=== PATIENT | male | born 1960 | race Caucasian/White ===

== ENCOUNTER → 2017-01-21 | Outpatient (CLI) | payer OTHER ==
[2017-01-21 07:16] LABS: INTERNATIONAL NORM RATIO 1.4 (2.0-3.5); PROTHROMBIN TIME 14.9 SECONDS (9.0-12.4)
== END | disposition home or self-care (01) ==
LOC: LAB 06:13
PROVIDERS: Internal Medicine Cardiovascular Disease
DX: I25.10 Atherosclerotic heart disease of native coronary artery without angina pectoris (principal); I10 Essential (primary) hypertension; Z95.2 Presence of prosthetic heart valve

== ENCOUNTER → 2017-01-23 | Outpatient (CLI) | payer OTHER ==
[2017-01-23 09:20] LABS: INTERNATIONAL NORM RATIO 1.5 (2.0-3.5); PROTHROMBIN TIME 16.7 SECONDS (9.0-12.4)
== END | disposition home or self-care (01) ==
LOC: LAB 08:25
PROVIDERS: Internal Medicine Cardiovascular Disease
DX: I25.10 Atherosclerotic heart disease of native coronary artery without angina pectoris (principal); I10 Essential (primary) hypertension; Z95.2 Presence of prosthetic heart valve

== ENCOUNTER → 2017-01-27 | Outpatient (CLI) | payer OTHER ==
[2017-01-27 09:31] LABS: INTERNATIONAL NORM RATIO 4.5 (2.0-3.5); PROTHROMBIN TIME 52.5 SECONDS (9.0-12.4)
== END | disposition home or self-care (01) ==
LOC: LAB 07:54
PROVIDERS: Internal Medicine Cardiovascular Disease
DX: I25.10 Atherosclerotic heart disease of native coronary artery without angina pectoris (principal); I10 Essential (primary) hypertension; Z95.2 Presence of prosthetic heart valve

== ENCOUNTER → 2017-01-31 | Outpatient (CLI) | payer OTHER ==
[2017-01-31 08:34] LABS: PROTHROMBIN TIME 65.9 SECONDS (9.0-12.4)
[2017-01-31 09:02] LABS: INTERNATIONAL NORM RATIO 5.6 (2.0-3.5)
== END | disposition home or self-care (01) ==
LOC: LAB 06:18
PROVIDERS: Internal Medicine Cardiovascular Disease
DX: I25.10 Atherosclerotic heart disease of native coronary artery without angina pectoris (principal); I10 Essential (primary) hypertension; Z95.2 Presence of prosthetic heart valve

== ENCOUNTER → 2017-02-03 | Outpatient (CLI) | payer OTHER ==
[2017-02-03 08:13] LABS: INTERNATIONAL NORM RATIO 1.4 (2.0-3.5); PROTHROMBIN TIME 14.8 SECONDS (9.0-12.4)
== END | disposition home or self-care (01) ==
LOC: LAB 07:02
PROVIDERS: Internal Medicine Cardiovascular Disease
DX: I25.10 Atherosclerotic heart disease of native coronary artery without angina pectoris (principal); I10 Essential (primary) hypertension; Z95.2 Presence of prosthetic heart valve

== ENCOUNTER → 2017-02-10 | Outpatient (CLI) | payer OTHER ==
[2017-02-10 09:59] LABS: INTERNATIONAL NORM RATIO 2.2 (2.0-3.5); PROTHROMBIN TIME 24.1 SECONDS (9.0-12.4)
== END | disposition home or self-care (01) ==
LOC: LAB 09:12
PROVIDERS: Internal Medicine Cardiovascular Disease
DX: I25.10 Atherosclerotic heart disease of native coronary artery without angina pectoris (principal); I10 Essential (primary) hypertension; Z95.2 Presence of prosthetic heart valve

== ENCOUNTER → 2017-02-26 | Outpatient (CLI) | payer OTHER | END | disposition home or self-care (01) | LOC: LAB 08:31 | PROVIDERS: Internal Medicine Cardiovascular Disease | DX: I25.10 Atherosclerotic heart disease of native coronary artery without angina pectoris (principal); I10 Essential (primary) hypertension; Z95.2 Presence of prosthetic heart valve ==

== ENCOUNTER → 2017-03-12 | Outpatient (CLI) | payer OTHER ==
[2017-03-12 08:51] LABS: PROTHROMBIN TIME 22.6 SECONDS (9.0-12.4)
== END | disposition home or self-care (01) ==
LOC: LAB 07:44
PROVIDERS: Internal Medicine Cardiovascular Disease
DX: I25.10 Atherosclerotic heart disease of native coronary artery without angina pectoris (principal); I10 Essential (primary) hypertension; Z95.2 Presence of prosthetic heart valve

== ENCOUNTER → 2017-04-01 | Outpatient (CLI) | payer OTHER ==
[2017-04-01 16:23] LABS: INTERNATIONAL NORM RATIO 2.7 (2.0-3.5); PROTHROMBIN TIME 30.6 SECONDS (9.0-12.4)
== END | disposition home or self-care (01) ==
LOC: LAB 14:57
PROVIDERS: Internal Medicine Cardiovascular Disease
DX: I25.10 Atherosclerotic heart disease of native coronary artery without angina pectoris (principal)

== ENCOUNTER → 2017-05-15 | Outpatient (CLI) | payer OTHER ==
[2017-05-15 09:13] LABS: INTERNATIONAL NORM RATIO 2.2 (2.0-3.5); PROTHROMBIN TIME 24.8 SECONDS (9.0-12.4)
== END | disposition home or self-care (01) ==
LOC: LAB 07:46
PROVIDERS: Internal Medicine Cardiovascular Disease
DX: I25.10 Atherosclerotic heart disease of native coronary artery without angina pectoris (principal); I10 Essential (primary) hypertension; Z95.2 Presence of prosthetic heart valve

== ENCOUNTER → 2017-06-19 | Outpatient (CLI) | payer OTHER ==
[2017-06-19 10:44] LABS: INTERNATIONAL NORM RATIO 1.7 (2.0-3.5); PROTHROMBIN TIME 19.2 SECONDS (9.0-12.4)
== END | disposition home or self-care (01) ==
LOC: LAB 09:48
PROVIDERS: Internal Medicine Cardiovascular Disease
DX: I25.10 Atherosclerotic heart disease of native coronary artery without angina pectoris (principal); I10 Essential (primary) hypertension; Z95.2 Presence of prosthetic heart valve

== ENCOUNTER → 2017-06-26 | Outpatient (CLI) | payer OTHER ==
[2017-06-26 08:27] LABS: INTERNATIONAL NORM RATIO 2.5 (2.0-3.5)
== END | disposition home or self-care (01) ==
LOC: LAB 07:30
PROVIDERS: Internal Medicine Cardiovascular Disease
DX: I25.10 Atherosclerotic heart disease of native coronary artery without angina pectoris (principal); I10 Essential (primary) hypertension; Z95.2 Presence of prosthetic heart valve

== ENCOUNTER → 2017-07-03 | Outpatient (CLI) | payer OTHER ==
[2017-07-03 09:21] LABS: INTERNATIONAL NORM RATIO 3.7 (2.0-3.5)
== END | disposition home or self-care (01) ==
LOC: LAB 08:26
PROVIDERS: Internal Medicine Cardiovascular Disease
DX: I25.10 Atherosclerotic heart disease of native coronary artery without angina pectoris (principal); I10 Essential (primary) hypertension; Z95.2 Presence of prosthetic heart valve

== ENCOUNTER 2017-07-13 21:17 | Emergency (ER) | payer OTHER ==
[~2017-07-13] VITALS: Ht 177.8 cm; Wt 106.6 kg
[2017-07-13] MEDS ORDERED: WARFARIN SOD5 MG PO (21:43)
[2017-07-13] MEDS ORDERED: NEURONTIN300 MG PO (21:44)
[2017-07-13] MEDS ORDERED: LANTUS SOL100 UNIT/1 SQ (21:44)
[2017-07-13 22:09] LABS: BASO # 0.1 10*3/uL (0.0-0.1); BASO % 0.5 % (0.0-1.0); EOS # 0.1 10*3/uL (0.0-0.4); HEMATOCRIT 45.4 % (42.0-52.0); HEMOGLOBIN 16.3 g/dl (14.0-18.0); LYMPH # 2.7 10*3/uL (1.3-4.4); MEAN CELL VOLUME 87.3 fl (80.0-94.0); MEAN CORPUSCULAR HGB 31.3 pg (27.0-31.0); MEAN CORPUSCULAR HGB CONC 35.9 g/dl (33.0-37.0); MEAN PLATELET VOLUME 9.9 fl (9.6-12.3); MONO # 1.1 10*3/uL (0.1-1.0); MONO % 8.6 % (3.0-9.0); NEUT # 8.7 10*3/uL (2.3-7.9); NEUT % 68.6 % (47.0-73.0); PLATELET COUNT AUTOMATED 208 10*3/uL (130-400); WHITE BLOOD COUNT 12.7 10*3/uL (4.8-10.8)
[2017-07-13 22:46] LABS: ACT PARTIAL THROMBO TIME 73.2 SECONDS (20.8-31.5)
[2017-07-13 22:49] LABS: INTERNATIONAL NORM RATIO 9.1 (2.0-3.5)
[2017-07-14] MEDS ORDERED: AUGMENTIN 875875 MG PO (15:49)
== END 2017-07-14 00:21 | disposition home or self-care (01) ==
LOC: ED 21:17
PROVIDERS: Emergency Medicine Emergency Medical Services
DX: R04.0 Epistaxis (principal); D68.32 Hemorrhagic disorder due to extrinsic circulating anticoagulants; F17.200 Nicotine dependence, unspecified, uncomplicated; Z79.899 Other long term (current) drug therapy; Z79.01 Long term (current) use of anticoagulants; Z95.1 Presence of aortocoronary bypass graft

== ENCOUNTER 2017-07-14 13:38 | Emergency (ER) | payer OTHER ==
[~2017-07-14] VITALS: Ht 185 cm; Wt 106.6 kg
[~2017-07-14 13:38] MED LIST: LANTUS SOL100 UNIT/1 SQ; NEURONTIN300 MG PO; WARFARIN SOD5 MG PO
[2017-07-14 14:26] LABS: BASO # 0.1 10*3/uL (0.0-0.1); BASO % 0.7 % (0.0-1.0); EOS # 0.2 10*3/uL (0.0-0.4); EOS % 1.8 % (1.0-4.0); HEMATOCRIT 45.5 % (42.0-52.0); HEMOGLOBIN 16.1 g/dl (14.0-18.0); LYMPH # 1.8 10*3/uL (1.3-4.4); LYMPH % 20.6 % (27.0-41.0); MEAN CELL VOLUME 88.2 fl (80.0-94.0); MEAN CORPUSCULAR HGB 31.2 pg (27.0-31.0); MEAN CORPUSCULAR HGB CONC 35.4 g/dl (33.0-37.0); MEAN PLATELET VOLUME 10.1 fl (9.6-12.3); MONO # 0.7 10*3/uL (0.1-1.0); MONO % 8.2 % (3.0-9.0); NEUT # 6.1 10*3/uL (2.3-7.9); NEUT % 68.5 % (47.0-73.0); PLATELET COUNT AUTOMATED 189 10*3/uL (130-400); RED BLOOD COUNT 5.16 10*6/uL (4.50-5.90)
[2017-07-14 14:48] LABS: ALBUMIN 3.6 gm/dl (3.1-4.5); ALKALINE PHOSPHATASE 76 U/L (45-117); BUN 8 mg/dl (7-24); CHLORIDE 95 mmol/L (98-107); CREATININE 0.93 mg/dL (0.70-1.30); MAGNESIUM 2.1 mg/dL (1.5-2.1); POTASSIUM 3.6 mmol/L (3.5-5.1); SGOT/AST 30 IU/L (3-35); SGPT/ALT 26 U/L (12-78); SODIUM 128 mmol/L (136-145); TOTAL PROTEIN 8.4 gm/dL (6.4-8.2)
[2017-07-14 14:50] LABS: INTERNATIONAL NORM RATIO 5.5 (2.0-3.5)
[2017-07-14] MEDS ORDERED: AUGMENTIN 875875 MG PO (15:49)
== END 2017-07-14 17:01 | disposition home or self-care (01) ==
LOC: ED 13:38
PROVIDERS: Emergency Medicine
DX: R04.0 Epistaxis (principal); D68.32 Hemorrhagic disorder due to extrinsic circulating anticoagulants; Z79.01 Long term (current) use of anticoagulants; Z79.899 Other long term (current) drug therapy

== ENCOUNTER → 2017-07-17 | Outpatient (CLI) | payer OTHER ==
[~2017-07-17] MED LIST changes: +AUGMENTIN 875875 MG PO
== END | disposition home or self-care (01) ==
LOC: LAB 06:45
PROVIDERS: Internal Medicine Cardiovascular Disease
DX: Z95.2 Presence of prosthetic heart valve (principal)

== ENCOUNTER → 2017-07-22 | Outpatient (CLI) | payer OTHER ==
[2017-07-22 08:31] LABS: INTERNATIONAL NORM RATIO 1.1 (2.0-3.5)
== END | disposition home or self-care (01) ==
LOC: LAB 07:20
PROVIDERS: Internal Medicine Cardiovascular Disease
DX: I25.10 Atherosclerotic heart disease of native coronary artery without angina pectoris (principal); I10 Essential (primary) hypertension; Z95.2 Presence of prosthetic heart valve

== ENCOUNTER 2017-07-24 12:47 | Emergency (ER) | payer OTHER ==
[~2017-07-24] VITALS: Wt 106.6 kg
[2017-07-24 13:11] LABS: BASO # 0.1 10*3/uL (0.0-0.1); BASO % 0.7 % (0.0-1.0); EOS # 0.2 10*3/uL (0.0-0.4); EOS % 1.7 % (1.0-4.0); HEMATOCRIT 45.9 % (42.0-52.0); HEMOGLOBIN 15.9 g/dl (14.0-18.0); LYMPH # 1.6 10*3/uL (1.3-4.4); MEAN CELL VOLUME 90.9 fl (80.0-94.0); MEAN CORPUSCULAR HGB 31.5 pg (27.0-31.0); MEAN CORPUSCULAR HGB CONC 34.6 g/dl (33.0-37.0); MEAN PLATELET VOLUME 9.6 fl (9.6-12.3); MONO # 0.9 10*3/uL (0.1-1.0); MONO % 8.1 % (3.0-9.0); NEUT # 7.8 10*3/uL (2.3-7.9); NEUT % 74.1 % (47.0-73.0); PLATELET COUNT AUTOMATED 242 10*3/uL (130-400); RED BLOOD COUNT 5.05 10*6/uL (4.50-5.90); RED CELL DISTRI WIDTH 13.2 % (0-14.5); WHITE BLOOD COUNT 10.5 10*3/uL (4.8-10.8)
[2017-07-24 13:23] LABS: ACT PARTIAL THROMBO TIME 25.7 SECONDS (20.8-31.5); INTERNATIONAL NORM RATIO 1.2 (2.0-3.5)
[2017-07-24 13:29] LABS: ALBUMIN 3.2 gm/dl (3.1-4.5); ALKALINE PHOSPHATASE 80 U/L (45-117); BUN 7 mg/dl (7-24); CHLORIDE 101 mmol/L (98-107); CREATININE 0.67 mg/dL (0.70-1.30); MAGNESIUM 2.1 mg/dL (1.5-2.1); POTASSIUM 3.9 mmol/L (3.5-5.1); SGOT/AST 23 IU/L (3-35); SGPT/ALT 20 U/L (12-78); SODIUM 132 mmol/L (136-145); TOTAL PROTEIN 7.8 gm/dL (6.4-8.2)
[2017-07-24 13:34] LABS: TROPONIN I 0.287 ng/ml (<0.045)
== END 2017-07-24 22:24 | disposition short-term general hospital (02) ==
LOC: ED 12:47
PROVIDERS: Emergency Medicine
DX: I21.4 Non-ST elevation (NSTEMI) myocardial infarction (principal); F17.200 Nicotine dependence, unspecified, uncomplicated; Z79.01 Long term (current) use of anticoagulants; Z79.899 Other long term (current) drug therapy; Z95.1 Presence of aortocoronary bypass graft

== ENCOUNTER → 2017-07-31 | Outpatient (CLI) | payer OTHER ==
[2017-07-31 09:23] LABS: INTERNATIONAL NORM RATIO 2.5 (2.0-3.5)
== END | disposition home or self-care (01) ==
LOC: LAB 08:04
PROVIDERS: Hospitalist
DX: Z79.01 Long term (current) use of anticoagulants (principal)

== ENCOUNTER → 2017-08-01 | Outpatient (CLI) | payer OTHER ==
[2017-08-01 09:51] LABS: INTERNATIONAL NORM RATIO 2.6 (2.0-3.5)
== END | disposition home or self-care (01) ==
LOC: LAB 01:20
PROVIDERS: Hospitalist
DX: Z79.01 Long term (current) use of anticoagulants (principal)

== ENCOUNTER → 2017-08-04 | Outpatient (CLI) | payer OTHER ==
[2017-08-04 08:08] LABS: INTERNATIONAL NORM RATIO 3.2 (2.0-3.5)
== END | disposition home or self-care (01) ==
LOC: LAB 08-02 01:22
PROVIDERS: Hospitalist
DX: Z51.81 Encounter for therapeutic drug level monitoring (principal); Z79.01 Long term (current) use of anticoagulants

== ENCOUNTER → 2017-08-07 | Outpatient (CLI) | payer OTHER ==
[2017-08-07 08:35] LABS: INTERNATIONAL NORM RATIO 3.8 (2.0-3.5)
== END | disposition home or self-care (01) ==
LOC: LAB 07:31
PROVIDERS: Internal Medicine Cardiovascular Disease
DX: Z95.2 Presence of prosthetic heart valve (principal)

== ENCOUNTER → 2017-08-11 | Outpatient (CLI) | payer OTHER ==
[2017-08-11 09:00] LABS: INTERNATIONAL NORM RATIO 2.1 (2.0-3.5)
== END | disposition home or self-care (01) ==
LOC: LAB 07:17
PROVIDERS: Internal Medicine Cardiovascular Disease
DX: Z79.01 Long term (current) use of anticoagulants (principal); Z95.2 Presence of prosthetic heart valve

== ENCOUNTER → 2017-08-18 | Outpatient (CLI) | payer OTHER ==
[2017-08-18 08:52] LABS: INTERNATIONAL NORM RATIO 1.5 (2.0-3.5)
== END | disposition home or self-care (01) ==
LOC: LAB 07:56
PROVIDERS: Internal Medicine Cardiovascular Disease
DX: Z79.01 Long term (current) use of anticoagulants (principal); Z95.2 Presence of prosthetic heart valve

== ENCOUNTER → 2017-08-25 | Outpatient (CLI) | payer OTHER ==
[2017-08-25 08:38] LABS: INTERNATIONAL NORM RATIO 2.1 (2.0-3.5)
== END | disposition home or self-care (01) ==
LOC: LAB 07:22
PROVIDERS: Internal Medicine Cardiovascular Disease
DX: Z95.2 Presence of prosthetic heart valve (principal)

== ENCOUNTER → 2017-09-01 | Outpatient (CLI) | payer OTHER ==
[2017-09-01 09:24] LABS: INTERNATIONAL NORM RATIO 2.2 (2.0-3.5)
== END | disposition home or self-care (01) ==
LOC: LAB 07:54
PROVIDERS: Internal Medicine Cardiovascular Disease
DX: Z95.2 Presence of prosthetic heart valve (principal)

== ENCOUNTER 2017-09-12 21:22 | Inpatient (IN) | payer OTHER ==
[~2017-09-12] VITALS: Ht 185.4 cm; Wt 106.2 kg
--- NOTE | ~2017-09-12 | CON ---
[place], [place] REPORT OF CONSULTATION NAME: DEBORA STEPHENSON [facility] #: [id number] UNIT #: [id number] ROOM: 407 DOCTOR: DREA REYNOSO MD BIRTHDATE: [birth year] DOS: 09/13/2017 REASON FOR CONSULTATION: Chest pain and valvular heart disease. HISTORY OF PRESENT ILLNESS: The patient is a 57-year-old patient previously known to Dr. Coburn presented to the Emergency Room with "chest pain." He described his pain as sharp pain on the left side of the chest at rest near the nipple area and pain did radiate to left arm. He has been complaining of some cough for the past several days with minimal sputum production. This chest pain has no associated symptoms and pain relieved without much intervention. He has a history of coronary artery disease with previous bypass and had a cardiac catheterization in July 2017 showed patent graft and medical therapy was recommended. He has a history of aortic valve replacement along with bypass surgery in 2010. Denies any fever or chills. No PND, no orthopnea. No nausea, vomiting or diarrhea, but did have some cough, but no hemoptysis. The patient drinks heavily as well as smokes about 2 packs a day, so he was admitted to the hospital and Cardiology consult for his chest pain. REVIEW OF SYSTEMS: Review of the 8 systems negative except as mentioned above. PAST MEDICAL HISTORY: 1. Coronary artery disease, status post 2-vessel bypass in April 2011 with WONG to LAD, saphenous vein graft to obtuse marginal rvrze2s. 2. disease, status post mechanical aortic valve replacement in April 2011. 3. Hypertension. 4. Diabetes type 2. 5. Obesity. PAST SURGICAL HISTORY: 1. History of aortic valve replacement with mechanical valve in 2010. 2. Status post 2-vessel bypass in April 2011. SOCIAL HISTORY: The patient does smoke 2 packs a day as well as drinks regularly. No illicit drugs. FAMILY HISTORY: Mother has diabetes, living, age 80. Father had valvular heart disease and CAD, living, age 79. ALLERGIES: No known drug allergies. HOME MEDICATIONS: Reviewed. PHYSICAL EXAMINATION: VITAL SIGNS: Reviewed. GENERAL: The patient is alert, comfort, in no acute distress, coughing on and occasionally during my examination. HEAD AND NECK: Pupils are round and equal. No jaundice. Tongue was moist and pharynx was clear. NECK: Supple, no distended neck veins, no carotid bruit. Thyroid not palpable. CHEST: Symmetrical, nontender. [place], [place] REPORT OF CONSULTATION NAME: DEBORA STEPHENSON UNIT #: [id number] ROOM: [facility] DOCTOR: DREA REYNOSO MD BIRTHDATE: [birth year] LUNGS: Few scattered rhonchi, but good air entry bilaterally. HEART: Regular rhythm. No S3. The second heart sound is mechanical sound, grade 1/6 systolic murmur. No palpable thrills. ABDOMEN: Benign, nontender. Bowel sounds normal. EXTREMITIES: Showed no edema. Distal pulses are palpable. SKIN: Warm and dry. No cyanosis, no clubbing. NEUROLOGIC: The patient is alert, oriented. No focal neurologic deficit. RECTAL: Deferred. GENITOURINARY: Deferred. REVIEW OF THE DIAGNOSTIC TESTS: His EKG, imaging studies and labs reviewed. His INR was elevated at 5.8. IMPRESSION: 1. Chest pain, atypical. 2. Coagulopathy with INR of 5.8. 3. History of mechanical aortic valve replacement in 2010. 4. Coronary artery disease, status post 2-vessel bypass in 2010, the patient had cardiac catheterization in July 2017, which showed 3-vessel disease and patent grafts. Medical therapy recommended. 5. Hypertension. 6. Tobacco use. 7. Alcohol abuse. 8. Diabetes. RECOMMENDATIONS: Continue to hold Coumadin and monitor PT/INR. Once the INR comes , he will resume the Coumadin. He had a cardiac catheterization in July 2017, 2D echo from July 2017 reviewed. No further cardiac testing. The patient is strongly counseled to quit smoking as well as to quit drinking. SBE prophylaxis for his mechanical aortic valve. There is no family at bedside at the time of my examination. DREA REYNOSO MD CM:CONSTR:REPORT OF CONSULTATION 1547 09/14/17 0129 interface
--- NOTE | ~2017-09-12 | PR ---
[place], [place] PROGRESS NOTE NAME: DEBORA STEPHENSON UNIT #: [id number] ROOM: 407 DOCTOR: DREA REYNOSO MD BIRTHDATE: [birth year] DOS: 09/14/2017 REASON FOR VISIT: Valvular heart disease, chest pain. SUBJECTIVE: The patient is feeling better. No chest pain, no dizziness, no shortness of breath. No PND or orthopnea. REVIEW OF SYSTEMS: Review of the 8 systems negative except as mentioned above. RHYTHM STRIPS: The patient was in sinus rhythm. PHYSICAL EXAMINATION: VITAL SIGNS: Blood pressure 156/90, pulse 80, respiratory rate 16. GENERAL: Alert, comfortable, in no acute distress. HEENT: Pupils round, equal. No jaundice. NECK: Supple, no distended neck veins, no carotid bruit. CHEST: Symmetrical, nontender. LUNGS: Clear to auscultation bilaterally except few rhonchi. HEART: Regular rhythm, no S3. Second heart sound is mechanical sound. No palpable thrills. ABDOMEN: Bowel sounds normal. EXTREMITIES: No edema. Distal pulses palpable. SKIN: Warm and dry. No cyanosis, no clubbing. MEDICATIONS AND ALLERGIES: Reviewed. LABORATORY DATA: His INR was 1.6 today, 3.6 yesterday afternoon and 5.8 yesterday co founder and ceo. IMPRESSION: 1. Chest pain, atypical, cardiac catheterization 07/2007. Medical therapy recommended. 2. Coagulopathy, resolved. The patient received 1 mg vitamin K. His INR is subtherapeutic. I will repeat his INR if it is below therapeutic level. He needs to be on heparin until INR is therapeutic, resume his Coumadin. 3. Coronary artery disease status post 2-vessel bypass in 2010. 4. Valvular heart disease, status post mechanical aortic valve replacement in 2010. 5. Alcohol abuse. 6. Tobacco use. The patient counseled to quit smoking. 7. His INR is subtherapeutic. Once INR is therapeutic, he can be discharged home on his current cardiac medications and he will follow with Dr. Coburn. [place], [place] PROGRESS NOTE NAME: DEBORA STEPHENSON UNIT #: [id number] ROOM: 407 DOCTOR: DREA REYNOSO MD BIRTHDATE: [birth year] DREA REYNOSO MD CM:SHADY 24 DREA REYNOSO MD 09/14/17 1323 interface
--- NOTE | ~2017-09-12 | EKG ---
[place], [place] ELECTROCARDIOGRAM REPORT [id number] #: [id number] ROOM: 407 DOCTOR: ANGELES TAO,DREA BIRTHDATE: [birth year] DOS: 09/13/2017 TIME: 00:45 a.m. IMPRESSION: 1. Sinus rhythm. 2. Probable left atrial enlargement. 3. Non-specific ST-T changes. 4. Normal QT interval. DREA REYNOSO MD CM:EKGRPT:ELECTROCARDIOGRAM REPORT [id number] 1239 DREA REYNOSO MD
--- NOTE | ~2017-09-12 | EKG ---
[place], [place] ELECTROCARDIOGRAM REPORT NAME: DEBORA STEPHENSON UNIT #: [id number] ROOM: 407 DOCTOR: ANGELES TAO,DREA BIRTHDATE: [birth year] DOS: 09/13/2017 TIME: 03:24 a.m. IMPRESSION: 1. Sinus rhythm. 2. Probable left atrial enlargement. 3. Nonspecific ST-T changes. 4. Normal QT interval. DREA REYNOSO MD CM:EKGRPT:ELECTROCARDIOGRAM REPORT 1015 1238 DREA REYNOSO MD
--- NOTE | ~2017-09-12 | EKG ---
[place], [place] ELECTROCARDIOGRAM REPORT NAME: DEBORA STEPHENSON UNIT #: [id number] ROOM: 407 DOCTOR: ANGELES TAO,DREA BIRTHDATE: [birth year] DOS: 09/12/2017 IMPRESSION: 1. Sinus rhythm. 2. Probable left atrial enlargement. 3. Nonspecific ST-T wave changes. DREA REYNOSO MD CM:EKGRPT:ELECTROCARDIOGRAM REPORT 1015 1236 DREA REYNOSO MD
[2017-09-12 21:25] VITALS: BP 123/82
[2017-09-12 21:43] LABS: BASO # 0.1 10*3/uL (0.0-0.1); BASO % 0.7 % (0.0-1.0); EOS # 0.6 10*3/uL (0.0-0.4); EOS % 4.6 % (1.0-4.0); HEMATOCRIT 46.3 % (42.0-52.0); HEMOGLOBIN 16.3 g/dl (14.0-18.0); LYMPH # 3.4 10*3/uL (1.3-4.4); LYMPH % 26.6 % (27.0-41.0); MEAN CELL VOLUME 89.2 fl (80.0-94.0); MEAN CORPUSCULAR HGB 31.4 pg (27.0-31.0); MEAN CORPUSCULAR HGB CONC 35.2 g/dl (33.0-37.0); MEAN PLATELET VOLUME 10.6 fl (9.6-12.3); MONO # 0.9 10*3/uL (0.1-1.0); MONO % 6.8 % (3.0-9.0); NEUT # 7.7 10*3/uL (2.3-7.9); PLATELET COUNT AUTOMATED 245 10*3/uL (130-400); RED BLOOD COUNT 5.19 10*6/uL (4.50-5.90); RED CELL DISTRI WIDTH 12.8 % (0-14.5); WHITE BLOOD COUNT 12.7 10*3/uL (4.8-10.8)
[2017-09-12] MEDS ORDERED: ASPIRIN325 MG PO (21:51)
[2017-09-12] MEDS ORDERED: METOPROLOL SUC100 M1 PO (21:52)
[2017-09-12] MEDS ORDERED: IMDUR SA30 MG PO (21:52)
[2017-09-12 22:01] VITALS: BP 138/77
--- NOTE | 2017-09-12 22:16 | NUR ---
PT STATES AFTER 1 NITROGLYCERI HIS CHEST PAIN HAS SUBSIDED.
[2017-09-12 22:24] LABS: ACT PARTIAL THROMBO TIME 55.5 SECONDS (20.8-31.5); ALBUMIN 3.4 gm/dl (3.1-4.5); ALKALINE PHOSPHATASE 75 U/L (45-117); BUN 10 mg/dl (7-24); CHLORIDE 99 mmol/L (98-107); CREATININE 0.74 mg/dL (0.70-1.30); SGOT/AST 29 IU/L (3-35); SGPT/ALT 33 U/L (12-78); SODIUM 132 mmol/L (136-145); TOTAL PROTEIN 8.3 gm/dL (6.4-8.2)
[2017-09-12 22:26] LABS: TROPONIN I < 0.015 ng/ml (<0.045)
[2017-09-12 22:29] LABS: INTERNATIONAL NORM RATIO 5.2 (2.0-3.5)
--- NOTE | 2017-09-12 22:30 | NUR ---
CRITICAL LAB RESULT CALLED INR 5.2, DR CALI.
[2017-09-12 22:52] VITALS: BP 124/58
--- NOTE | 2017-09-12 23:02 | NUR ---
PT ACCIDENTLY PULLED OUT IV. DRESSING APPLIED.
[2017-09-12 23:26] VITALS: BP 149/89
[2017-09-13] VITALS: BP 131/80
[2017-09-13 00:19] VITALS: BP 131/80
--- NOTE | 2017-09-13 01:20 | NUR ---
SPOKE WITH DR. GONZALEZ AT THIS TIME, DR. GONZALEZ STATED THAT IF THE PATIENT HAS NOT HAD HIS LONG ACTING INSULIN SHE WOULD LIKE HIM TO HAVE A DOSE NOW
[2017-09-13 03:14] LABS: BASO # 0.1 10*3/uL (0.0-0.1); BASO % 0.5 % (0.0-1.0); EOS # 0.5 10*3/uL (0.0-0.4); EOS % 5.4 % (1.0-4.0); HEMATOCRIT 43.3 % (42.0-52.0); HEMOGLOBIN 15.2 g/dl (14.0-18.0); LYMPH # 2.3 10*3/uL (1.3-4.4); LYMPH % 23.8 % (27.0-41.0); MEAN CELL VOLUME 88.9 fl (80.0-94.0); MEAN CORPUSCULAR HGB 31.2 pg (27.0-31.0); MEAN CORPUSCULAR HGB CONC 35.1 g/dl (33.0-37.0); MEAN PLATELET VOLUME 9.9 fl (9.6-12.3); MONO # 0.6 10*3/uL (0.1-1.0); MONO % 6.7 % (3.0-9.0); NEUT % 63.3 % (47.0-73.0); PLATELET COUNT AUTOMATED 195 10*3/uL (130-400); RED BLOOD COUNT 4.87 10*6/uL (4.50-5.90); RED CELL DISTRI WIDTH 12.6 % (0-14.5); WHITE BLOOD COUNT 9.5 10*3/uL (4.8-10.8)
[2017-09-13 03:31] LABS: ACT PARTIAL THROMBO TIME 53.5 SECONDS (20.8-31.5); ALBUMIN 3.2 gm/dl (3.1-4.5); ALKALINE PHOSPHATASE 70 U/L (45-117); BUN 9 mg/dl (7-24); CHLORIDE 98 mmol/L (98-107); CHOLESTEROL 193 mg/dL (<200); CREATININE 0.81 mg/dL (0.70-1.30); HDL CHOLESTEROL 34 mg/dl (40-60); LDL CHOLESTEROL 124 mg/dL (9-159); PHOSPHOROUS 3.1 mg/dL (2.5-4.9); POTASSIUM 3.9 mmol/L (3.5-5.1); SGOT/AST 25 IU/L (3-35); SGPT/ALT 31 U/L (12-78); SODIUM 133 mmol/L (136-145); TOTAL PROTEIN 7.6 gm/dL (6.4-8.2); TRIGLYCERIDES 176 mg/dl (<150); VLDL CHOLESTEROL 35 mg/dL (6-40)
[2017-09-13 03:32] LABS: FREE T4 1.18 ng/dl (0.76-1.46)
[2017-09-13 03:37] LABS: THYROID STIM HORMONE (HS) 0.724 uIU/ml (0.358-4.75)
[2017-09-13 03:49] LABS: INTERNATIONAL NORM RATIO 5.8 (2.0-3.5)
--- NOTE | 2017-09-13 03:53 | NUR ---
DR. OTERO NOTIFIED FOR CRITICAL INR OF 5.8
--- NOTE | 2017-09-13 06:52 | NUR ---
CARDIOLOGY CONSULT CALLED TO ANSWERING SERIVCE AT THIS TIME.
[2017-09-13 08:00] VITALS: BP 172/86
--- NOTE | 2017-09-13 09:30 | NUR ---
PATIENT AWAKE, ALERT, & ORIENTED. DENIES ANY PAIN OR SHORTNESS OF BREATH. MEDICATION TAKEN WITHOUT DIFFICULTY. PATIENT AMBULATORY TO BATHROOM, DENIES DYSURIA. NO EDEMA NOTED. CALL LIGHT IS WITHIN REACH.
[2017-09-13 12:00] VITALS: BP 160/90
[2017-09-13 12:17] LABS: INTERNATIONAL NORM RATIO 3.6 (2.0-3.5)
[2017-09-13 16:00] VITALS: BP 151/75
[2017-09-13 20:00] VITALS: BP 169/83
[2017-09-14] VITALS: BP 127/74
--- NOTE | 2017-09-14 00:45 | NUR ---
PATIENT RESTING IN BED WITH EYES CLOSED. NO SIGNS OR SYMPTOMS OF DISTRESS NOTED. AROUSES TO VERBAL STIMULI. WILL CONTINUE TO MONITOR. CALL LIGHT IN REACH.
[2017-09-14 06:30] LABS: BASO # 0.1 10*3/uL (0.0-0.1); BASO % 0.7 % (0.0-1.0); EOS # 0.6 10*3/uL (0.0-0.4); EOS % 5.2 % (1.0-4.0); HEMATOCRIT 45.4 % (42.0-52.0); HEMOGLOBIN 15.9 g/dl (14.0-18.0); LYMPH # 2.8 10*3/uL (1.3-4.4); LYMPH % 25.7 % (27.0-41.0); MEAN CORPUSCULAR HGB 31.9 pg (27.0-31.0); MEAN PLATELET VOLUME 10.2 fl (9.6-12.3); MONO # 0.8 10*3/uL (0.1-1.0); MONO % 7.2 % (3.0-9.0); NEUT # 6.6 10*3/uL (2.3-7.9); NEUT % 60.8 % (47.0-73.0); PLATELET COUNT AUTOMATED 199 10*3/uL (130-400); RED BLOOD COUNT 4.99 10*6/uL (4.50-5.90); RED CELL DISTRI WIDTH 12.7 % (0-14.5); WHITE BLOOD COUNT 10.9 10*3/uL (4.8-10.8)
[2017-09-14 06:44] LABS: ALBUMIN 3.2 gm/dl (3.1-4.5); ALKALINE PHOSPHATASE 69 U/L (45-117); BUN 10 mg/dl (7-24); CHLORIDE 101 mmol/L (98-107); CREATININE 0.71 mg/dL (0.70-1.30); POTASSIUM 3.9 mmol/L (3.5-5.1); SGOT/AST 23 IU/L (3-35); SGPT/ALT 31 U/L (12-78); SODIUM 135 mmol/L (136-145); TOTAL PROTEIN 7.8 gm/dL (6.4-8.2)
[2017-09-14 06:58] LABS: INTERNATIONAL NORM RATIO 1.6 (2.0-3.5)
--- NOTE | 2017-09-14 07:51 | NUR ---
PATIENT RESTING IN BED CALL LIGHT IN REACH NO COMPLAINTS AT THIS TIME. SEE SHIFT ASSESSMENT
[2017-09-14 08:00] VITALS: BP 156/90
[2017-09-14 10:08] LABS: INTERNATIONAL NORM RATIO 1.5 (2.0-3.5)
[2017-09-14 12:00] VITALS: BP 136/84
[2017-09-14 16:00] VITALS: BP 138/81
--- NOTE | 2017-09-14 16:08 | NUR ---
PATIENT RESTING IN BED WATCHING TV CALL LIGHT IN REACH SEE SHIFT ASSESSMENT
[2017-09-14 20:00] VITALS: BP 132/85
--- NOTE | 2017-09-14 22:28 | NUR ---
PATIENT MEDICATED WITH VISTARIL FOR COMPLAINTS OF ANXIETY. RESTING IN BED WATCHING TV. NO SIGNS OR SYMPTOMS OF DISTRESS NOTED. WILL CONTINUE TO MONITOR. CALL LIGHT IN REACH.
--- NOTE | 2017-09-14 23:53 | NUR ---
GAVE PRN ROBOXIN FOR MUSCLE ACHES.
[2017-09-15] VITALS: BP 143/80
[2017-09-15 06:03] LABS: BUN 8 mg/dl (7-24); CHLORIDE 103 mmol/L (98-107); CREATININE 0.69 mg/dL (0.70-1.30); POTASSIUM 4.1 mmol/L (3.5-5.1); SODIUM 137 mmol/L (136-145)
[2017-09-15 06:19] LABS: BASO # 0.1 10*3/uL (0.0-0.1); BASO % 0.9 % (0.0-1.0); EOS # 0.5 10*3/uL (0.0-0.4); EOS % 5.6 % (1.0-4.0); HEMATOCRIT 44.9 % (42.0-52.0); HEMOGLOBIN 15.6 g/dl (14.0-18.0); LYMPH # 2.7 10*3/uL (1.3-4.4); LYMPH % 30.5 % (27.0-41.0); MEAN CELL VOLUME 90.7 fl (80.0-94.0); MEAN CORPUSCULAR HGB 31.5 pg (27.0-31.0); MEAN CORPUSCULAR HGB CONC 34.7 g/dl (33.0-37.0); MONO # 0.8 10*3/uL (0.1-1.0); MONO % 8.7 % (3.0-9.0); NEUT # 4.7 10*3/uL (2.3-7.9); NEUT % 53.7 % (47.0-73.0); PLATELET COUNT AUTOMATED 201 10*3/uL (130-400); RED BLOOD COUNT 4.95 10*6/uL (4.50-5.90); RED CELL DISTRI WIDTH 12.6 % (0-14.5); WHITE BLOOD COUNT 8.7 10*3/uL (4.8-10.8)
[2017-09-15 07:28] LABS: INTERNATIONAL NORM RATIO 1.2 (2.0-3.5)
[2017-09-15 08:00] VITALS: BP 140/72; BP 150/93
--- NOTE | 2017-09-15 08:35 | NUR ---
PATIENT RESTING IN BED CALL LIGHT IN REACH SEE SHIFT ASSESSMENT
--- NOTE | 2017-09-15 09:00 | NUR ---
Azure Architect in to talk to patient. Patient states lives at home with family. There are few steps in the home. Physician: hailee smith Pharmacy: mail Home health services: none Patient's level of ADLs: INDEPENDENT Patient has working utilities: all working DME: none Follow-up physician's appointment after d/c: will be made by hospitalsit nruse director upon discharge Does patient want to access PORTAL?: no Discharge plan discussed with patient, patient lives at home, is independent in adls and ambulation, patient states he will be going back home and denies . MELISA BRONSON
[2017-09-15 12:00] VITALS: BP 150/93
[2017-09-15 16:00] VITALS: BP 151/90
[2017-09-15 20:00] VITALS: BP 145/84
[2017-09-16] VITALS: BP 136/85
--- NOTE | 2017-09-16 03:57 | NUR ---
PATIENT RESTING IN BED WITH EYES CLOSED. NO SIGNS OR SYMPTOMS OF DISTRESS NOTED. AROUSES TO VERBAL STIMULI. WILL CONTINUE TO MONITOR. CALL LIGHT IN REACH.
[2017-09-16 07:14] LABS: INTERNATIONAL NORM RATIO 1.1 (2.0-3.5)
[2017-09-16 08:00] VITALS: BP 148/90
--- NOTE | 2017-09-16 08:00 | NUR ---
ASSESSMENT COMPLETE. LUNGS CLEAR. PT STATES HE "WANTS OUT OF HERE TODAY" PT IS VERY LOUD VOICING HIS CONCERN THAT THE PHYSICIANS ARE NOT DOING THEIR JOB TO ADJUST HIS COUMADIN AND HE IS SO ANGRY THAT HE IS GOING "TO WALK OUT OF HERE". NO EDEMA NOTED, ASSISTANT ENGINEER ON, SINUS RHYTHM. DENY CHEST PAIN HOWEVER HE STATED IF HE ISN'T OUT OF HERE TODAY "MY BLOOD PRESSURE WILL GO UP AND I WILL END UP HAVING A STROKE" DR. DRAKE NOTIFIED THAT PATIENT COPLAINS OF BACK PAIN. WILL CONTINUE TO MONITOR FOR NEEDS.
--- NOTE | 2017-09-16 11:45 | NUR ---
case management called [facility] in [place] to check on cost of lovenox, spoke to Jerrod, pharmacist, patient's insurace will cover lovenox at 100%, informed hospitalist nurse director
[2017-09-16 12:00] VITALS: BP 139/83
[2017-09-16] MEDS ORDERED: ENOXAPARIN100 MG/1 M SC (13:34)
[2017-09-16] MEDS ORDERED: NATURE'S BLEND100 M2 PO (13:34)
[2017-09-16] MEDS ORDERED: VITAMIN D5000 UNI1 PO (13:34)
--- NOTE | 2017-09-16 14:11 | NUR ---
received order for home health via [facility] for lovenox injections and daily INR. Contacted robert and faxed referral.
--- NOTE | 2017-09-16 14:33 | NUR ---
FLU SHOT GIVEN PRIOR TO D/C HOME. INFORMATION GIVEN. PT UNDERSTANDS FLU SHOT, NO QUESTIONS AT THIS TIME
--- NOTE | 2017-09-16 14:50 | NUR ---
PT WALKED OFF FLOOR, RIDE TO STEM FRAZER AT FRONT ENTERANCE
--- NOTE | 2017-09-16 14:52 | NUR ---
Discharge instructions reviewed with patient. Patient receptive and verbalizes understanding. Follow-up care arranged and understood. Written instructions given to patient. discuss lovenox with patient and gave patient instructions on how to administer medicaion tonight. he understands. written instructions given, went over with patient. he understands to get new rx filled today and for dose of lovenox tonight, needs coumadin today as well. understands to get inr checked tomorrow and for dr. chan to follow for coumadin dosing. [facility] will start seeing patient tomorrow morning for lovenox teaching. iv left forarm d/c dressing applied. diamond wheel molder d/c. AYSE BOND
== END 2017-09-16 14:52 | disposition home or self-care (01) | DRG 917 ==
LOC: ED 21:22 → 4E 23:42 → EDHOLD 23:42 → 4E 23:48
PROVIDERS: Emergency Medicine; Family Medicine; Internal Medicine; ADMIT Internal Medicine
DX: T45.511A Poisoning by anticoagulants, accidental (unintentional), initial encounter (principal); J18.9 Pneumonia, unspecified organism; D68.9 Coagulation defect, unspecified; E11.59 Type 2 diabetes mellitus with other circulatory complications; E11.65 Type 2 diabetes mellitus with hyperglycemia; E44.1 Mild protein-calorie malnutrition; R65.10 Systemic inflammatory response syndrome (SIRS) of non-infectious origin without acute organ dysfunction; I20.0 Unstable angina; E87.1 Hypo-osmolality and hyponatremia; E83.41 Hypermagnesemia; R04.0 Epistaxis; T45.515A Adverse effect of anticoagulants, initial encounter; K21.9 Gastro-esophageal reflux disease without esophagitis; E66.09 Other obesity due to excess calories; F10.129 Alcohol abuse with intoxication, unspecified; R07.89 Other chest pain; F41.9 Anxiety disorder, unspecified; R09.82 Postnasal drip; Z79.4 Long term (current) use of insulin; I25.2 Old myocardial infarction; Z95.1 Presence of aortocoronary bypass graft; Z95.2 Presence of prosthetic heart valve; Z79.2 Long term (current) use of antibiotics; Z72.0 Tobacco use; Z71.6 Tobacco abuse counseling; Z79.01 Long term (current) use of anticoagulants; Z79.82 Long term (current) use of aspirin; Z79.899 Other long term (current) drug therapy; Z68.30 Body mass index [BMI] 30.0-30.9, adult; Z83.3 Family history of diabetes mellitus; Z82.49 Family history of ischemic heart disease and other diseases of the circulatory system; Y92.89 Other specified places as the place of occurrence of the external cause

== ENCOUNTER → 2017-09-17 | Outpatient (CLI) | payer OTHER ==
[~2017-09-17] MED LIST changes: +ASPIRIN325 MG PO; +ENOXAPARIN100 MG/1 M SC; +IMDUR SA30 MG PO; +METOPROLOL SUC100 M1 PO; +NATURE'S BLEND100 M2 PO; +VITAMIN D5000 UNI1 PO
[2017-09-17 10:12] LABS: INTERNATIONAL NORM RATIO 1.1 (2.0-3.5)
== END | disposition home or self-care (01) ==
LOC: LAB 09:01
PROVIDERS: Internal Medicine Cardiovascular Disease
DX: Z95.2 Presence of prosthetic heart valve (principal)

== ENCOUNTER → 2017-09-18 | Outpatient (CLI) | payer OTHER ==
[2017-09-18 09:57] LABS: INTERNATIONAL NORM RATIO 1.5 (2.0-3.5)
== END | disposition home or self-care (01) ==
LOC: LAB 09:05
PROVIDERS: Internal Medicine Cardiovascular Disease
DX: Z95.2 Presence of prosthetic heart valve (principal)

== ENCOUNTER → 2017-09-19 | Outpatient (CLI) | payer OTHER ==
[2017-09-19 09:18] LABS: INTERNATIONAL NORM RATIO 1.9 (2.0-3.5)
== END | disposition home or self-care (01) ==
LOC: LAB 08:09
PROVIDERS: Internal Medicine Cardiovascular Disease
DX: Z95.2 Presence of prosthetic heart valve (principal)

== ENCOUNTER → 2017-09-29 | Outpatient (CLI) | payer OTHER ==
[2017-09-29 09:04] LABS: INTERNATIONAL NORM RATIO 2.3 (2.0-3.5)
== END | disposition home or self-care (01) ==
LOC: LAB 08:03
PROVIDERS: Internal Medicine Cardiovascular Disease
DX: Z95.2 Presence of prosthetic heart valve (principal)

== ENCOUNTER → 2017-10-13 | Outpatient (CLI) | payer OTHER ==
[2017-10-13 10:47] LABS: INTERNATIONAL NORM RATIO 1.9 (2.0-3.5)
[2017-10-13 10:48] LABS: BUN 15 mg/dl (7-24); CHLORIDE 95 mmol/L (98-107); CHOLESTEROL 217 mg/dL (<200); CREATININE 0.87 mg/dL (0.70-1.30); HDL CHOLESTEROL 48 mg/dl (40-60); LDL CHOLESTEROL 146 mg/dL (9-159); POTASSIUM 3.6 mmol/L (3.5-5.1); SODIUM 132 mmol/L (136-145); TRIGLYCERIDES 116 mg/dl (<150); VLDL CHOLESTEROL 23 mg/dL (6-40)
== END | disposition home or self-care (01) ==
LOC: LAB 08:40
PROVIDERS: Family Medicine; Internal Medicine Cardiovascular Disease
DX: Z95.2 Presence of prosthetic heart valve (principal); E11.9 Type 2 diabetes mellitus without complications

== ENCOUNTER → 2017-10-20 | Outpatient (CLI) | payer OTHER ==
[2017-10-20 09:46] LABS: INTERNATIONAL NORM RATIO 1.8 (2.0-3.5)
== END | disposition home or self-care (01) ==
LOC: LAB 07:58
PROVIDERS: Internal Medicine Cardiovascular Disease
DX: Z95.2 Presence of prosthetic heart valve (principal)

== ENCOUNTER → 2017-10-24 | Outpatient (CLI) | payer OTHER ==
[2017-10-24 09:52] LABS: INTERNATIONAL NORM RATIO 2.8 (2.0-3.5)
== END | disposition home or self-care (01) ==
LOC: LAB 08:37
PROVIDERS: Internal Medicine Cardiovascular Disease
DX: Z95.2 Presence of prosthetic heart valve (principal)

== ENCOUNTER → 2017-10-29 | Outpatient (CLI) | payer OTHER ==
[2017-10-29 08:51] LABS: INTERNATIONAL NORM RATIO 3.3 (2.0-3.5)
== END | disposition home or self-care (01) ==
LOC: LAB 08:21
PROVIDERS: Internal Medicine Cardiovascular Disease
DX: Z95.2 Presence of prosthetic heart valve (principal)

== ENCOUNTER → 2017-11-13 | Outpatient (CLI) | payer OTHER ==
[2017-11-13 09:19] LABS: INTERNATIONAL NORM RATIO 4.4 (2.0-3.5)
== END | disposition home or self-care (01) ==
LOC: LAB 07:51
PROVIDERS: Internal Medicine Cardiovascular Disease
DX: Z48.21 Encounter for aftercare following heart transplant (principal); Z95.2 Presence of prosthetic heart valve

== ENCOUNTER → 2017-11-20 | Outpatient (CLI) | payer OTHER ==
[2017-11-20 16:35] LABS: INTERNATIONAL NORM RATIO 1.9 (2.0-3.5)
== END | disposition home or self-care (01) ==
LOC: LAB 15:43
PROVIDERS: Internal Medicine Cardiovascular Disease
DX: Z48.812 Encounter for surgical aftercare following surgery on the circulatory system (principal); Z95.2 Presence of prosthetic heart valve

== ENCOUNTER → 2017-12-02 | Outpatient (CLI) | payer OTHER ==
[2017-12-02 14:41] LABS: INTERNATIONAL NORM RATIO 3.3 (2.0-3.5)
== END | disposition home or self-care (01) ==
LOC: LAB 14:05
PROVIDERS: Internal Medicine Cardiovascular Disease
DX: Z48.21 Encounter for aftercare following heart transplant (principal); Z95.2 Presence of prosthetic heart valve

== ENCOUNTER → 2017-12-11 | Outpatient (CLI) | payer OTHER ==
[2017-12-11 16:07] LABS: INTERNATIONAL NORM RATIO 4.9 (2.0-3.5)
== END | disposition home or self-care (01) ==
LOC: LAB 15:24
PROVIDERS: Internal Medicine Cardiovascular Disease
DX: Z48.812 Encounter for surgical aftercare following surgery on the circulatory system (principal); Z95.2 Presence of prosthetic heart valve

== ENCOUNTER → 2017-12-15 | Outpatient (CLI) | payer OTHER ==
[2017-12-15 14:16] LABS: INTERNATIONAL NORM RATIO 1.6 (2.0-3.5)
== END | disposition home or self-care (01) ==
LOC: LAB 12:47
PROVIDERS: Internal Medicine Cardiovascular Disease
DX: Z48.812 Encounter for surgical aftercare following surgery on the circulatory system (principal); Z95.2 Presence of prosthetic heart valve

== ENCOUNTER → 2017-12-22 | Outpatient (CLI) | payer OTHER ==
[2017-12-22 17:07] LABS: INTERNATIONAL NORM RATIO 1.6 (2.0-3.5)
== END | disposition home or self-care (01) ==
LOC: LAB 16:39
PROVIDERS: Internal Medicine Cardiovascular Disease
DX: Z48.812 Encounter for surgical aftercare following surgery on the circulatory system (principal); Z95.2 Presence of prosthetic heart valve

== ENCOUNTER → 2017-12-31 | Outpatient (CLI) | payer OTHER ==
[2017-12-31 10:22] LABS: INTERNATIONAL NORM RATIO 2.6 (2.0-3.5)
== END | disposition home or self-care (01) ==
LOC: LAB 09:22
PROVIDERS: Internal Medicine Cardiovascular Disease
DX: Z48.812 Encounter for surgical aftercare following surgery on the circulatory system (principal); Z95.2 Presence of prosthetic heart valve

== ENCOUNTER → 2018-01-19 | Outpatient (CLI) | payer OTHER ==
[2018-01-19 19:08] LABS: INTERNATIONAL NORM RATIO 1.8 (2.0-3.5)
== END | disposition home or self-care (01) ==
LOC: LAB 18:28
PROVIDERS: Internal Medicine Cardiovascular Disease
DX: Z48.812 Encounter for surgical aftercare following surgery on the circulatory system (principal); Z95.2 Presence of prosthetic heart valve

== ENCOUNTER → 2018-01-26 | Outpatient (CLI) | payer OTHER ==
[2018-01-26 11:07] LABS: INTERNATIONAL NORM RATIO 3.1 (2.0-3.5)
== END | disposition home or self-care (01) ==
LOC: LAB 10:08
PROVIDERS: Internal Medicine Cardiovascular Disease
DX: Z48.812 Encounter for surgical aftercare following surgery on the circulatory system (principal); Z95.2 Presence of prosthetic heart valve

== ENCOUNTER → 2018-02-03 | Outpatient (CLI) | payer OTHER ==
[2018-02-03 12:17] LABS: INTERNATIONAL NORM RATIO 1.4 (2.0-3.5)
== END | disposition home or self-care (01) ==
LOC: LAB 11:32
PROVIDERS: Internal Medicine Cardiovascular Disease
DX: Z48.812 Encounter for surgical aftercare following surgery on the circulatory system (principal); Z95.2 Presence of prosthetic heart valve

== ENCOUNTER → 2018-02-09 | Outpatient (CLI) | payer OTHER ==
[2018-02-09 17:08] LABS: INTERNATIONAL NORM RATIO 6.3 (2.0-3.5)
== END | disposition home or self-care (01) ==
LOC: LAB 15:46
PROVIDERS: Internal Medicine Cardiovascular Disease
DX: R79.1 Abnormal coagulation profile (principal); Z95.2 Presence of prosthetic heart valve

== ENCOUNTER → 2018-02-11 | Outpatient (CLI) | payer OTHER ==
[2018-02-11 15:50] LABS: INTERNATIONAL NORM RATIO 1.8 (2.0-3.5)
== END | disposition home or self-care (01) ==
LOC: LAB 15:08
PROVIDERS: Internal Medicine Cardiovascular Disease
DX: Z48.812 Encounter for surgical aftercare following surgery on the circulatory system (principal); Z95.2 Presence of prosthetic heart valve

== ENCOUNTER → 2018-02-16 | Outpatient (CLI) | payer OTHER ==
[2018-02-16 17:07] LABS: INTERNATIONAL NORM RATIO 2.4 (2.0-3.5)
== END | disposition home or self-care (01) ==
LOC: LAB 16:43
PROVIDERS: Internal Medicine Cardiovascular Disease
DX: Z48.812 Encounter for surgical aftercare following surgery on the circulatory system (principal); Z95.2 Presence of prosthetic heart valve

== ENCOUNTER → 2018-02-24 | Outpatient (CLI) | payer OTHER ==
[2018-02-24 10:32] LABS: INTERNATIONAL NORM RATIO 1.4 (2.0-3.5)
== END | disposition home or self-care (01) ==
LOC: LAB 09:44
PROVIDERS: Internal Medicine Cardiovascular Disease
DX: Z48.812 Encounter for surgical aftercare following surgery on the circulatory system (principal); Z95.2 Presence of prosthetic heart valve

== ENCOUNTER → 2018-03-03 | Outpatient (CLI) | payer OTHER ==
[2018-03-03 10:30] LABS: INTERNATIONAL NORM RATIO 2.4 (2.0-3.5)
== END | disposition home or self-care (01) ==
LOC: LAB 08:51
PROVIDERS: Internal Medicine Cardiovascular Disease
DX: Z95.2 Presence of prosthetic heart valve (principal)

== ENCOUNTER → 2018-03-20 | Outpatient (CLI) | payer OTHER ==
[2018-03-20 09:12] LABS: INTERNATIONAL NORM RATIO 2.2 (2.0-3.5)
== END | disposition home or self-care (01) ==
LOC: LAB 07:44
PROVIDERS: Internal Medicine Cardiovascular Disease
DX: Z48.812 Encounter for surgical aftercare following surgery on the circulatory system (principal); Z95.2 Presence of prosthetic heart valve

== ENCOUNTER → 2018-03-26 | Outpatient (CLI) | payer OTHER ==
[2018-03-26 14:58] LABS: INTERNATIONAL NORM RATIO 2.2 (2.0-3.5)
== END | disposition home or self-care (01) ==
LOC: LAB 13:23
PROVIDERS: Internal Medicine Cardiovascular Disease
DX: Z48.812 Encounter for surgical aftercare following surgery on the circulatory system (principal); Z95.2 Presence of prosthetic heart valve

== ENCOUNTER → 2018-04-10 | Outpatient (CLI) | payer OTHER ==
[2018-04-10 10:38] LABS: INTERNATIONAL NORM RATIO 3.7 (2.0-3.5)
== END | disposition home or self-care (01) ==
LOC: LAB 09:32
PROVIDERS: Internal Medicine Cardiovascular Disease
DX: Z48.812 Encounter for surgical aftercare following surgery on the circulatory system (principal); Z95.2 Presence of prosthetic heart valve

== ENCOUNTER → 2018-04-16 | Outpatient (CLI) | payer OTHER ==
[2018-04-16 17:32] LABS: INTERNATIONAL NORM RATIO 2.1 (2.0-3.5)
== END | disposition home or self-care (01) ==
LOC: LAB 16:10
PROVIDERS: Internal Medicine Cardiovascular Disease
DX: Z48.812 Encounter for surgical aftercare following surgery on the circulatory system (principal); Z95.2 Presence of prosthetic heart valve

== ENCOUNTER → 2018-04-28 | Outpatient (CLI) | payer OTHER ==
[2018-04-28 16:54] LABS: INTERNATIONAL NORM RATIO 2.1 (2.0-3.5)
== END | disposition home or self-care (01) ==
LOC: LAB 16:25
PROVIDERS: Internal Medicine Cardiovascular Disease
DX: Z48.812 Encounter for surgical aftercare following surgery on the circulatory system (principal); Z95.2 Presence of prosthetic heart valve

== ENCOUNTER → 2018-05-14 | Outpatient (CLI) | payer OTHER ==
[2018-05-14 17:42] LABS: INTERNATIONAL NORM RATIO 2.3 (2.0-3.5)
== END | disposition home or self-care (01) ==
LOC: LAB 16:52
PROVIDERS: Internal Medicine Cardiovascular Disease
DX: Z48.812 Encounter for surgical aftercare following surgery on the circulatory system (principal); Z95.2 Presence of prosthetic heart valve

== ENCOUNTER → 2018-06-06 | Outpatient (CLI) | payer OTHER | END | disposition home or self-care (01) | LOC: LAB 08:53 | PROVIDERS: Internal Medicine Cardiovascular Disease | DX: Z48.812 Encounter for surgical aftercare following surgery on the circulatory system (principal); Z95.2 Presence of prosthetic heart valve ==

== ENCOUNTER → 2018-06-30 | Outpatient (CLI) | payer OTHER ==
[2018-06-30 09:53] LABS: INTERNATIONAL NORM RATIO 2.6 (2.0-3.5)
== END | disposition home or self-care (01) ==
LOC: LAB 08:49
PROVIDERS: Internal Medicine Cardiovascular Disease
DX: Z95.2 Presence of prosthetic heart valve (principal)

== ENCOUNTER → 2018-07-14 | Outpatient (CLI) | payer OTHER ==
[2018-07-14 09:18] LABS: INTERNATIONAL NORM RATIO 3.5 (2.0-3.5)
== END | disposition home or self-care (01) ==
LOC: LAB 08:11
PROVIDERS: Internal Medicine Cardiovascular Disease
DX: Z48.812 Encounter for surgical aftercare following surgery on the circulatory system (principal); Z95.2 Presence of prosthetic heart valve

== ENCOUNTER → 2018-08-04 | Outpatient (CLI) | payer OTHER ==
[2018-08-04 08:55] LABS: INTERNATIONAL NORM RATIO 1.9 (2.0-3.5)
== END | disposition home or self-care (01) ==
LOC: LAB 08:15
PROVIDERS: Internal Medicine Cardiovascular Disease
DX: Z48.812 Encounter for surgical aftercare following surgery on the circulatory system (principal); Z95.2 Presence of prosthetic heart valve

== ENCOUNTER 2018-08-09 20:28 | Emergency (ER) | payer OTHER ==
[~2018-08-09] VITALS: Ht 185.4 cm; Wt 106.6 kg
--- NOTE | ~2018-08-09 | EKG ---
[place], [place] ELECTROCARDIOGRAM REPORT NAME: DEBORA STEPHENSON UNIT #: [id number] ROOM: DOCTOR: EPIPHANY DRAFT REPORT BIRTHDATE: [birth year] [facility] [place] Test Date: 2018-08-09 Test Time: 20:32:39 Pat Name: DEBORA STEPHENSON Department: er Room: 2 Gender: M Flow Nurse: Roberta Coburn : 1960 Requested By: JOSE MANUEL BACA Order Number: [id number] Reading MD: Yunior Heredia MD Measurements Intervals [place] Rate: 109 P: 55 VT: 150 QRS: 37 QRSD: 100 T: 160 QT: 375 QTc: 506 Interpretive Statements Sinus tachycardia Probable left atrial enlargement Probable anterior infarct, age indeterminate Lateral leads are also involved Prolonged QT interval Electronically Signed On 08-10-2018 8:00:53 PDT by Yunior Heredia MD CM:EKGRPT:ELECTROCARDIOGRAM REPORT [id number] JOSE MANUEL SANCHEZ DRAFT REPORT JOSE MANUEL BACA DO
[2018-08-09 20:44] LABS: BASO # 0.1 10*3/uL (0.0-0.1); BASO % 0.7 % (0.0-1.0); EOS # 0.4 10*3/uL (0.0-0.4); EOS % 2.3 % (1.0-4.0); HEMATOCRIT 47.4 % (42.0-52.0); LYMPH # 3.8 10*3/uL (1.3-4.4); LYMPH % 24.6 % (27.0-41.0); MEAN CELL VOLUME 88.8 fl (80.0-94.0); MEAN CORPUSCULAR HGB 31.8 pg (27.0-31.0); MEAN CORPUSCULAR HGB CONC 35.9 g/dl (33.0-37.0); MEAN PLATELET VOLUME 9.9 fl (9.6-12.3); MONO # 1.4 10*3/uL (0.1-1.0); MONO % 9.2 % (3.0-9.0); NEUT # 9.7 10*3/uL (2.3-7.9); NEUT % 62.9 % (47.0-73.0); PLATELET COUNT AUTOMATED 271 10*3/uL (130-400); RED BLOOD COUNT 5.34 10*6/uL (4.50-5.90); WHITE BLOOD COUNT 15.4 10*3/uL (4.8-10.8)
[2018-08-09 21:02] LABS: ALBUMIN 3.4 gm/dl (3.1-4.5); ALKALINE PHOSPHATASE 74 U/L (45-117); BUN 5 mg/dl (7-24); CHLORIDE 98 mmol/L (98-107); CREATININE 0.83 mg/dL (0.70-1.30); POTASSIUM 4.1 mmol/L (3.5-5.1); SGOT/AST 182 IU/L (3-35); SGPT/ALT 48 U/L (12-78); SODIUM 131 mmol/L (136-145); TOTAL PROTEIN 8.7 gm/dL (6.4-8.2)
[2018-08-09 21:30] LABS: ACT PARTIAL THROMBO TIME 50.7 SECONDS (20.8-31.5)
[2018-08-09 21:32] LABS: INTERNATIONAL NORM RATIO 5.4 (2.0-3.5)
== END 2018-08-09 23:32 | disposition short-term general hospital (02) ==
LOC: ED 20:28
PROVIDERS: Emergency Medicine
DX: I21.9 Acute myocardial infarction, unspecified (principal); E11.9 Type 2 diabetes mellitus without complications; I10 Essential (primary) hypertension; F17.200 Nicotine dependence, unspecified, uncomplicated; Z79.899 Other long term (current) drug therapy; Z95.1 Presence of aortocoronary bypass graft; Z79.82 Long term (current) use of aspirin

== ENCOUNTER → 2018-08-17 | Outpatient (CLI) | payer OTHER ==
[2018-08-17 08:41] LABS: INTERNATIONAL NORM RATIO 2.9 (2.0-3.5)
== END | disposition home or self-care (01) ==
LOC: LAB 07:40
PROVIDERS: Internal Medicine Cardiovascular Disease
DX: Z48.812 Encounter for surgical aftercare following surgery on the circulatory system (principal); Z95.2 Presence of prosthetic heart valve

== ENCOUNTER → 2018-08-20 | Outpatient (CLI) | payer OTHER ==
[2018-08-20 11:28] LABS: INTERNATIONAL NORM RATIO 2.8 (2.0-3.5)
== END | disposition home or self-care (01) ==
LOC: LAB 10:08
PROVIDERS: Internal Medicine Cardiovascular Disease
DX: Z48.812 Encounter for surgical aftercare following surgery on the circulatory system (principal); Z95.2 Presence of prosthetic heart valve

== ENCOUNTER → 2018-08-27 | Outpatient (CLI) | payer OTHER ==
[2018-08-27 10:16] LABS: INTERNATIONAL NORM RATIO 4.7 (2.0-3.5)
== END | disposition home or self-care (01) ==
LOC: LAB 08:56
PROVIDERS: Internal Medicine Cardiovascular Disease
DX: Z48.812 Encounter for surgical aftercare following surgery on the circulatory system (principal); Z95.2 Presence of prosthetic heart valve

== ENCOUNTER → 2018-09-07 | Outpatient (CLI) | payer OTHER ==
[2018-09-07 08:41] LABS: INTERNATIONAL NORM RATIO 3.4 (2.0-3.5)
== END | disposition home or self-care (01) ==
LOC: LAB 07:42
PROVIDERS: Internal Medicine Cardiovascular Disease
DX: Z48.812 Encounter for surgical aftercare following surgery on the circulatory system (principal); Z95.4 Presence of other heart-valve replacement

== ENCOUNTER → 2018-09-21 | Outpatient (CLI) | payer OTHER ==
[2018-09-21 08:57] LABS: INTERNATIONAL NORM RATIO 2.2 (2.0-3.5)
== END | disposition home or self-care (01) ==
LOC: LAB 07:41
PROVIDERS: Internal Medicine Cardiovascular Disease
DX: Z95.2 Presence of prosthetic heart valve (principal)

== ENCOUNTER → 2018-09-28 | Outpatient (CLI) | payer OTHER ==
[2018-09-28 09:33] LABS: INTERNATIONAL NORM RATIO 2.4 (2.0-3.5)
== END | disposition home or self-care (01) ==
LOC: LAB 08:44
PROVIDERS: Internal Medicine Cardiovascular Disease
DX: Z95.2 Presence of prosthetic heart valve (principal)

== ENCOUNTER 2018-10-04 15:04 | Emergency (ER) | payer MEDICARE, MEDICAID ==
[~2018-10-04] VITALS: Ht 185.4 cm; Wt 104.3 kg
--- NOTE | ~2018-10-04 | EKG ---
[place], [place] ELECTROCARDIOGRAM REPORT NAME: DEBORA STEPHENSON UNIT #: [id number] ROOM: DOCTOR: ASHIA DRAFT REPORT BIRTHDATE: [birth year] [facility] Test Date: 2018-10-04 Test Time: 15:05:31 Pat Name: DEBORA STEPHENSON Department: Room: 020 Gender: M Siebel Consultant: : 1960 Requested By: ELENA TALAVERA Order Number: [id number] Reading MD: Isaac Snell MD Measurements Intervals [place] Rate: 98 P: 9 NV: 145 QRS: 44 QRSD: 118 T: 113 QT: 355 QTc: 454 Interpretive Statements Sinus tachycardia Multiple ventricular premature complexes Nonspecific intraventricular conduction delay Probable anteroseptal infarct, old Nonspecific T abnormalities, lateral leads Compared to ECG 08/09/2018 20:32:39 Ventricular premature complex(es) now present Intraventricular conduction delay now present T-wave abnormality has improved Prolonged QT interval no longer present Myocardial infarct finding still present Electronically Signed On 10-04-2018 14:35:05 PST by Isaac Snell MD CM:EKGRPT:ELECTROCARDIOGRAM REPORT 1505 1435 ELENA SANCHEZ DRAFT REPORT ELENA TALAVERA DO
[2018-10-04 15:08] VITALS: BP 124/64
[2018-10-04 15:25] VITALS: BP 103/72
[2018-10-04 15:28] LABS: BASO # 0.1 10*3/uL (0.0-0.1); BASO % 0.9 % (0.0-1.0); EOS # 0.4 10*3/uL (0.0-0.4); EOS % 2.6 % (1.0-4.0); HEMATOCRIT 46.7 % (42.0-52.0); HEMOGLOBIN 16.5 g/dl (14.0-18.0); LYMPH # 3.5 10*3/uL (1.3-4.4); LYMPH % 22.1 % (27.0-41.0); MEAN CELL VOLUME 89.1 fl (80.0-94.0); MEAN CORPUSCULAR HGB 31.5 pg (27.0-31.0); MEAN CORPUSCULAR HGB CONC 35.3 g/dl (33.0-37.0); MEAN PLATELET VOLUME 9.9 fl (9.6-12.3); MONO # 1.1 10*3/uL (0.1-1.0); MONO % 6.6 % (3.0-9.0); NEUT # 10.8 10*3/uL (2.3-7.9); NEUT % 67.4 % (47.0-73.0); PLATELET COUNT AUTOMATED 339 10*3/uL (130-400); RED BLOOD COUNT 5.24 10*6/uL (4.50-5.90)
[2018-10-04 16:00] LABS: ACT PARTIAL THROMBO TIME 41.5 SECONDS (20.8-31.5)
[2018-10-04 16:01] VITALS: BP 103/76
[2018-10-04 16:01] LABS: ALBUMIN 3.4 gm/dl (3.1-4.5); ALKALINE PHOSPHATASE 106 U/L (45-117); BUN 7 mg/dl (7-24); CHLORIDE 100 mmol/L (98-107); CREATININE 0.67 mg/dL (0.70-1.30); POTASSIUM 3.6 mmol/L (3.5-5.1); SGOT/AST 37 IU/L (3-35); SGPT/ALT 56 U/L (12-78); SODIUM 135 mmol/L (136-145); TOTAL PROTEIN 8.7 gm/dL (6.4-8.2)
[2018-10-04 16:03] LABS: INTERNATIONAL NORM RATIO 6.2 (2.0-3.5)
[2018-10-04 16:08] LABS: TROPONIN I < 0.015 ng/ml (<0.045)
[2018-10-04 16:14] VITALS: BP 143/86
[2018-10-04 16:36] VITALS: BP 120/77
== END 2018-10-04 17:13 | disposition left against medical advice (07) ==
LOC: ED 15:04 → EDHOLD 16:36 → ED 17:13
PROVIDERS: Emergency Medicine
DX: R07.9 Chest pain, unspecified (principal); R06.02 Shortness of breath; I25.2 Old myocardial infarction; F17.200 Nicotine dependence, unspecified, uncomplicated; Z79.82 Long term (current) use of aspirin; Z79.899 Other long term (current) drug therapy; Z79.01 Long term (current) use of anticoagulants; Z95.1 Presence of aortocoronary bypass graft

== ENCOUNTER → 2018-10-06 | Outpatient (CLI) | payer MEDICARE, MEDICAID ==
[2018-10-06 10:25] LABS: INTERNATIONAL NORM RATIO 2.5 (2.0-3.5)
== END | disposition home or self-care (01) ==
LOC: LAB 08:11
PROVIDERS: Internal Medicine Cardiovascular Disease
DX: Z48.812 Encounter for surgical aftercare following surgery on the circulatory system (principal); Z95.2 Presence of prosthetic heart valve

== ENCOUNTER → 2018-10-29 | Outpatient (CLI) | payer MEDICARE, MEDICAID ==
[~2018-10-29] MED LIST changes: +NORCO 5-325 TA1 EACH PO
[2018-10-29 10:56] LABS: INTERNATIONAL NORM RATIO 1.8 (2.0-3.5)
== END | disposition home or self-care (01) ==
PROVIDERS: Internal Medicine Cardiovascular Disease
DX: Z95.2 Presence of prosthetic heart valve (principal)

== ENCOUNTER → 2018-11-06 | Outpatient (CLI) | payer MEDICARE, MEDICAID ==
[2018-11-06 09:04] LABS: INTERNATIONAL NORM RATIO 2.9 (2.0-3.5)
== END | disposition home or self-care (01) ==
LOC: LAB 07:55
PROVIDERS: Internal Medicine Cardiovascular Disease
DX: Z48.812 Encounter for surgical aftercare following surgery on the circulatory system (principal); Z95.2 Presence of prosthetic heart valve

== ENCOUNTER 2018-11-10 09:55 | Emergency (ER) | payer MEDICARE, MEDICAID ==
[~2018-11-10] VITALS: Ht 185.4 cm; Wt 106.6 kg
[~2018-11-10 09:55] MED LIST changes: -NORCO 5-325 TA1 EACH PO
[2018-11-10] MEDS ORDERED: NORCO 5-325 TA1 EACH PO (12:20)
== END 2018-11-10 13:01 | disposition home or self-care (01) ==
LOC: ED 09:55
DX: S82.832A Other fracture of upper and lower end of left fibula, initial encounter for closed fracture (principal); F17.200 Nicotine dependence, unspecified, uncomplicated; Z79.899 Other long term (current) drug therapy; Z79.01 Long term (current) use of anticoagulants; Z79.82 Long term (current) use of aspirin; W01.0XXA Fall on same level from slipping, tripping and stumbling without subsequent striking against object, initial encounter; Y93.89 Activity, other specified; Y92.093 Driveway of other non-institutional residence as the place of occurrence of the external cause; Y99.8 Other external cause status

== ENCOUNTER → 2018-11-26 | Outpatient (CLI) | payer MEDICARE, MEDICAID ==
[~2018-11-26] MED LIST changes: +NORCO 5-325 TA1 EACH PO
[2018-11-26 12:19] LABS: INTERNATIONAL NORM RATIO 3.1 (2.0-3.5)
== END | disposition home or self-care (01) ==
LOC: LAB 11:23
PROVIDERS: Internal Medicine Cardiovascular Disease
DX: I25.10 Atherosclerotic heart disease of native coronary artery without angina pectoris (principal); Z95.2 Presence of prosthetic heart valve

== ENCOUNTER → 2018-12-22 | Outpatient (CLI) | payer MEDICARE, MEDICAID ==
[2018-12-22 12:47] LABS: INTERNATIONAL NORM RATIO 1.7 (2.0-3.5)
== END | disposition home or self-care (01) ==
LOC: LAB 10:53
PROVIDERS: Internal Medicine Cardiovascular Disease
DX: I25.10 Atherosclerotic heart disease of native coronary artery without angina pectoris (principal); Z95.2 Presence of prosthetic heart valve

== ENCOUNTER → 2019-01-05 | Outpatient (CLI) | payer MEDICARE, MEDICAID | END | disposition home or self-care (01) | LOC: LAB 08:57 | PROVIDERS: Internal Medicine Cardiovascular Disease | DX: I25.10 Atherosclerotic heart disease of native coronary artery without angina pectoris (principal); Z95.2 Presence of prosthetic heart valve ==

== ENCOUNTER → 2019-02-15 | Outpatient (CLI) | payer MEDICARE, MEDICAID ==
[2019-02-15 09:33] LABS: INTERNATIONAL NORM RATIO 2.1 (2.0-3.5)
== END | disposition home or self-care (01) ==
LOC: LAB 07:56
PROVIDERS: Internal Medicine Cardiovascular Disease
DX: I25.10 Atherosclerotic heart disease of native coronary artery without angina pectoris (principal); Z95.2 Presence of prosthetic heart valve

== ENCOUNTER → 2019-03-24 | Outpatient (CLI) | payer MEDICARE, MEDICAID ==
[2019-03-24 09:38] LABS: INTERNATIONAL NORM RATIO 4.4 (2.0-3.5)
== END | disposition home or self-care (01) ==
LOC: LAB 07:50
PROVIDERS: Internal Medicine Cardiovascular Disease
DX: I25.10 Atherosclerotic heart disease of native coronary artery without angina pectoris (principal); Z95.2 Presence of prosthetic heart valve

== ENCOUNTER → 2019-04-07 | Outpatient (CLI) | payer MEDICARE, MEDICAID ==
[2019-04-07 10:26] LABS: INTERNATIONAL NORM RATIO 3.7 (2.0-3.5)
== END | disposition home or self-care (01) ==
LOC: LAB 08:33
PROVIDERS: Internal Medicine Cardiovascular Disease
DX: I25.10 Atherosclerotic heart disease of native coronary artery without angina pectoris (principal); Z95.2 Presence of prosthetic heart valve

== ENCOUNTER → 2019-04-14 | Outpatient (CLI) | payer MEDICARE, MEDICAID ==
[2019-04-14 09:10] LABS: INTERNATIONAL NORM RATIO 1.5 (2.0-3.5)
== END | disposition home or self-care (01) ==
LOC: LAB 08:11
PROVIDERS: Internal Medicine Cardiovascular Disease
DX: I25.10 Atherosclerotic heart disease of native coronary artery without angina pectoris (principal); Z95.2 Presence of prosthetic heart valve

== ENCOUNTER → 2019-04-21 | Outpatient (CLI) | payer MEDICARE, MEDICAID ==
[2019-04-21 10:10] LABS: INTERNATIONAL NORM RATIO 3.3 (2.0-3.5)
== END | disposition home or self-care (01) ==
LOC: LAB 08:28
PROVIDERS: Internal Medicine Cardiovascular Disease
DX: I25.10 Atherosclerotic heart disease of native coronary artery without angina pectoris (principal); Z95.2 Presence of prosthetic heart valve

== ENCOUNTER → 2019-04-28 | Outpatient (CLI) | payer MEDICARE, MEDICAID ==
[2019-04-28 11:01] LABS: INTERNATIONAL NORM RATIO 2.7 (2.0-3.5)
== END | disposition home or self-care (01) ==
LOC: LAB 09:58
PROVIDERS: Internal Medicine Cardiovascular Disease
DX: I25.10 Atherosclerotic heart disease of native coronary artery without angina pectoris (principal); Z95.2 Presence of prosthetic heart valve

== ENCOUNTER → 2019-05-11 | Outpatient (CLI) | payer MEDICARE, MEDICAID ==
[2019-05-11 09:59] LABS: INTERNATIONAL NORM RATIO 2.7 (2.0-3.5)
== END | disposition home or self-care (01) ==
LOC: LAB 09:17
PROVIDERS: Internal Medicine Cardiovascular Disease
DX: I25.10 Atherosclerotic heart disease of native coronary artery without angina pectoris (principal); Z95.2 Presence of prosthetic heart valve

== ENCOUNTER → 2019-06-01 | Outpatient (CLI) | payer MEDICARE, MEDICAID ==
[2019-06-01 10:38] LABS: INTERNATIONAL NORM RATIO 2.7 (2.0-3.5)
== END | disposition home or self-care (01) ==
LOC: LAB 09:36
PROVIDERS: Internal Medicine Cardiovascular Disease
DX: I25.10 Atherosclerotic heart disease of native coronary artery without angina pectoris (principal); Z95.2 Presence of prosthetic heart valve

== ENCOUNTER → 2019-06-18 | Outpatient (CLI) | payer MEDICARE, MEDICAID ==
[2019-06-18 10:41] LABS: INTERNATIONAL NORM RATIO 2.1 (2.0-3.5)
== END | disposition home or self-care (01) ==
LOC: LAB 09:24
PROVIDERS: Internal Medicine Cardiovascular Disease
DX: I25.10 Atherosclerotic heart disease of native coronary artery without angina pectoris (principal); Z95.2 Presence of prosthetic heart valve

== ENCOUNTER → 2019-09-15 | Outpatient (CLI) | payer MEDICARE, MEDICAID ==
[2019-09-15 09:21] LABS: INTERNATIONAL NORM RATIO 2.8 (2.0-3.5)
== END | disposition home or self-care (01) ==
LOC: LAB 08:27
PROVIDERS: Internal Medicine Cardiovascular Disease
DX: I25.10 Atherosclerotic heart disease of native coronary artery without angina pectoris (principal)

== ENCOUNTER 2019-12-13 15:10 | Inpatient (IN) | payer MEDICARE, MEDICAID ==
[~2019-12-13] VITALS: Ht 182.9 cm; Wt 109.8 kg
[2019-12-13 15:24] VITALS: BP 109/83
--- NOTE | 2019-12-13 16:13 | NUR ---
PATIENT AWAKE AND ALERT. BROUGHT TO ROOM 7 FROM [facility] FOR EVALUATION/TREATMENT.
[2019-12-13 18:02] LABS: BASO # 0.1 10*3/uL (0.0-0.1); BASO % 0.5 % (0.0-1.0); EOS # 0.2 10*3/uL (0.0-0.4); EOS % 1.5 % (1.0-4.0); HEMATOCRIT 45.3 % (42.0-52.0); HEMOGLOBIN 15.3 g/dl (14.0-18.0); LYMPH # 2.4 10*3/uL (1.3-4.4); LYMPH % 15.3 % (27.0-41.0); MEAN CELL VOLUME 89.7 fl (80.0-94.0); MEAN CORPUSCULAR HGB 30.3 pg (27.0-31.0); MEAN CORPUSCULAR HGB CONC 33.8 g/dl (33.0-37.0); MEAN PLATELET VOLUME 9.7 fl (9.6-12.3); MONO # 1.3 10*3/uL (0.1-1.0); MONO % 8.5 % (3.0-9.0); NEUT # 11.4 10*3/uL (2.3-7.9); NEUT % 73.7 % (47.0-73.0); PLATELET COUNT AUTOMATED 300 10*3/uL (130-400); RED BLOOD COUNT 5.05 10*6/uL (4.50-5.90); WHITE BLOOD COUNT 15.4 10*3/uL (4.8-10.8)
[2019-12-13 18:18] LABS: ALBUMIN 2.9 gm/dl (3.1-4.5); ALKALINE PHOSPHATASE 82 U/L (45-117); BUN 5 mg/dl (7-24); CHLORIDE 96 mmol/L (98-107); CREATININE 0.88 mg/dL (0.70-1.30); SGOT/AST 12 IU/L (3-35); SGPT/ALT 19 U/L (12-78); SODIUM 130 mmol/L (136-145); TOTAL PROTEIN 7.5 gm/dL (6.4-8.2)
[2019-12-13 20:28] LABS: ACT PARTIAL THROMBO TIME 38.8 SECONDS (20.0-32.1); INTERNATIONAL NORM RATIO 2.2 (2.0-3.5)
[2019-12-13 21:40] VITALS: BP 144/72
[2019-12-13] MEDS ORDERED: ATORVASTATIN CA40 M1 PO (22:34)
[2019-12-13] MEDS ORDERED: GABAPENTIN800 MG PO (22:35)
[2019-12-14] VITALS: BP 104/66
--- NOTE | 2019-12-14 04:40 | NUR ---
DEBORA STEPHENSON [id number] Please refer to the physician's history and physical for past medical history, comorbid conditions, and allergies. Diagnosis: CELLULITIS RIGHT LEG SEPSIS Dimitri Score: 17,AT RISK WOUND DESCRIPTIONS: Wound Number: 1 Location of the wound: right heel Type of wound: unstageable Thickness: Full Size: 7.5cm x 7.0cm x <0.1cm Tunneling: none Undermining: none Sinus Tract: none Presence of Exudate: none Amount: None Color: Brown, yellow Odor: Foul Periwound Skin Appearance: Erythema Wound edges: approximated Pain (associated with wound): none at time of assessment How does patient state this happened? pt stated this started about 4-5 days ago Wound Number: 2 Location of the wound: right plantar aspect of foot Type of wound: unstageable Thickness: Full Size: 5.0cm x 5.0cm x <0.1cm Tunneling: none Undermining: none Sinus Tract: none Presence of Exudate: none Amount: None Color: Brown, yellow Odor: Foul Periwound Skin Appearance: Erythema Wound edges: approximated Pain (associated with wound): none at time of assessment How does patient state this happened? pt stated this started about 4-5 days ago Wound Number: 3 Location of the wound: left plantar aspect of foot Type of wound: unstageable Thickness: Full Size: 0.5cm x 2.0cm x <0.1cm Tunneling: none Undermining: none Sinus Tract: none Presence of Exudate: none Amount: None Color: Brown, yellow Odor: Foul Periwound Skin Appearance: Erythema Wound edges: approximated Pain (associated with wound): none at time of assessment How does patient state this happened? pt stated this started about 4-5 days ago Wound Number: 4 Location of the wound: left heel Type of wound: unstageable Thickness: Full Size: 7.0cm x 7.0cm x <0.1cm Tunneling: none Undermining: none Sinus Tract: none Presence of Exudate: none Amount: None Color: Brown, yellow Odor: Foul Periwound Skin Appearance: Erythema Wound edges: approximated Pain (associated with wound): none at time of assessment How does patient state this happened? pt stated this started about 4-5 days ago Wound Number: 5 Location of the wound: left dorsal aspect of foot Type of wound: Scab Thickness: Partial Size: 14.5cm x 8.0cm x <0.1cm Tunneling: none Undermining: none Sinus Tract: none Presence of Exudate: none Amount: None Color: Brown, red Odor: Foul Periwound Skin Appearance: Erythema Wound edges: approximated Pain (associated with wound): none at time of assessment How does patient state this happened? pt stated this started about 4-5 days ago Surface the patient is resting on: Isoflex SKIN PREVENTION RECOMMENDATION: 1. Pressure redistribution support surface as appropriate 2. Elevate heels 3. Remove boots/TEDS every shift and reapply 4. Head of bed 30 degrees as tolerated 5. Assess nutrition and hydration 6. Manage moisture 7. Avoid the use of containment devices while in bed 8. Use absorptive products on surfaces limit layers of linens on bed 9. Turn and reposition every 1-2 hours in bed and every 1 hour in chair as tolerated 10. Weight shifts every 15 minutes while up in chair 11. Offloading with pillows or device to keep heels elevated off bed 12. Monitor skin at least every shift 13. Inspect under medical devices twice a day WOUND TREATMENT RECOMMENDATIONS: Podiatry is already on consult for areas to bilateral lower extremities Arterial studies to bilateral lower extremities non healing wounds Cleanse bilateral feet with soap and water pat areas dry then apply lac-hydrin BID. Heel raiser pro boots to bilateral feet while in bed.
[2019-12-14 08:00] VITALS: BP 128/78
[2019-12-14 08:03] LABS: BASO # 0.1 10*3/uL (0.0-0.1); BASO % 0.6 % (0.0-1.0); EOS # 0.2 10*3/uL (0.0-0.4); EOS % 1.5 % (1.0-4.0); HEMATOCRIT 49.9 % (42.0-52.0); HEMOGLOBIN 16.5 g/dl (14.0-18.0); LYMPH # 2.2 10*3/uL (1.3-4.4); LYMPH % 17.7 % (27.0-41.0); MEAN CELL VOLUME 90.6 fl (80.0-94.0); MEAN CORPUSCULAR HGB 29.9 pg (27.0-31.0); MEAN CORPUSCULAR HGB CONC 33.1 g/dl (33.0-37.0); MEAN PLATELET VOLUME 9.7 fl (9.6-12.3); MONO # 1.2 10*3/uL (0.1-1.0); MONO % 9.8 % (3.0-9.0); NEUT # 8.8 10*3/uL (2.3-7.9); PLATELET COUNT AUTOMATED 300 10*3/uL (130-400); RED BLOOD COUNT 5.51 10*6/uL (4.50-5.90); WHITE BLOOD COUNT 12.6 10*3/uL (4.8-10.8)
[2019-12-14 08:09] LABS: INTERNATIONAL NORM RATIO 1.6 (2.0-3.5)
[2019-12-14 08:29] LABS: ALKALINE PHOSPHATASE 89 U/L (45-117); BUN 6 mg/dl (7-24); CHLORIDE 101 mmol/L (98-107); CHOLESTEROL 194 mg/dL (<200); CREATININE 0.74 mg/dL (0.70-1.30); HDL CHOLESTEROL 30 mg/dl (40-60); LDL CHOLESTEROL 139 mg/dL (9-159); PHOSPHOROUS 2.8 mg/dL (2.5-4.9); POTASSIUM 3.8 mmol/L (3.5-5.1); SGOT/AST 18 IU/L (3-35); SGPT/ALT 18 U/L (12-78); SODIUM 134 mmol/L (136-145); TOTAL PROTEIN 7.5 gm/dL (6.4-8.2); TRIGLYCERIDES 126 mg/dl (<150); VLDL CHOLESTEROL 25 mg/dL (6-40)
--- NOTE | 2019-12-14 09:00 | NUR ---
Break And Load Operator in to talk to patient. Patient states lives at home with alone. There are no steps in the home. Physician: hailee malin Pharmacy: [facility] Home health services: none Patient's level of ADLs: MINIMAL ASSIST Patient has working utilities: all working DME: none Follow-up physician's appointment after d/c: will be made by hospitalist nurse director upon discharge Does patient want to access PORTAL?: no Discharge plan discussed with patient he lives at home alone, he states he is independent in adls and has difficulty with ambulation, he has multiple wounds to feet, discussed with him a short term snf when medically stable for discharge for physical therapy, wound care and possibly iv antibiotics, patient was not sure he wanted to do this, educated him that he may not be able to care for himself at home if he needs iv antibiotics and dressing changes, educated him that a short term snf is where he can have 24 hour care for iv and wound care, patient stated he would think about it, case management will follow. MELISA BRONSON
[2019-12-14 12:00] VITALS: BP 124/70
--- NOTE | 2019-12-14 13:11 | NUR ---
NOTIFIED DR HENRIQUEZ I HAD SPOKEN TO DR REYNOLDS AGAIN AND HE STATED HIS OFFICE WOULD ARRANGE FOR TRANSFER. WE WERE TO FAX FACE SHEET AND BILATERAL ULTRASOUND RESULTS.
--- NOTE | 2019-12-14 14:11 | NUR ---
DR VERMA OFFICE NOTIFIED OF NEW CONSULT.
--- NOTE | 2019-12-14 14:27 | NUR ---
NOTIFIED DR REYNOLDS OF NEW CONSULT FOR LOWER EXTREMITY DISEASE.DR REYNOLDS REQUESTED PT BE TRANSFERRED TO [facility] [place] FOR ATERIOGRAM IF ATTENDING OK WITH THAT.NOTIFIED DR HENRIQUEZ AND PER ATTENDING LONG DR REYNOLDS MADE THE ARRANGEMENTS FOR TRANSFER.
--- NOTE | 2019-12-14 14:57 | NUR ---
PHYSICAL THERAPY Screen received pt is from home admitted with cellulitis and wounds of BLE/feet. Please consult PT if pt has a decline in functional status from baseline, thank you. Aniyah Cee PT
[2019-12-14 16:00] VITALS: BP 116/59
--- NOTE | 2019-12-14 16:22 | NUR ---
HEALTH CARE MARKETING SPECIALIST FAXED AND DR REYNOLDS'S OFFICE SHOWED RECIEPT OF FACE SHEET AND ARTERIAL AND VENOUS ULTRASOUND RESULTS.
--- NOTE | 2019-12-14 18:31 | NUR ---
DR ELDER ROUNDED AND SEEN PT.
[2019-12-14 20:00] VITALS: BP 118/48
--- NOTE | 2019-12-14 20:44 | NUR ---
DRESSINGS APPLIED TO BILAT FEET, PT TOLERATED WELL.
[2019-12-15] VITALS (8 sets, daily range): BP systolic 120–172; BP diastolic 56–89
--- NOTE | 2019-12-15 05:37 | NUR ---
PT. GIVEN NORCO ORDERED FOR COMPLAINTS OF FOOT PAIN BILAT. DRESSINGS TAKEN OFF FEET FOR HIBICLENS BATH. JOSE DODGE RN
--- NOTE | 2019-12-15 07:03 | NUR ---
PT OFF FLOOR VIA BED FOR DEBRIDEMENT OF BILATERAL FEET WITH DR AGEE.ASSESSMENT COMPLETE PRIOR TO TRANSPORT.
[2019-12-15 07:08] LABS: BASO # 0.1 10*3/uL (0.0-0.1); BASO % 0.5 % (0.0-1.0); EOS # 0.2 10*3/uL (0.0-0.4); EOS % 1.8 % (1.0-4.0); HEMATOCRIT 44.1 % (42.0-52.0); HEMOGLOBIN 14.8 g/dl (14.0-18.0); LYMPH % 19.2 % (27.0-41.0); MEAN CELL VOLUME 90.2 fl (80.0-94.0); MEAN CORPUSCULAR HGB 30.3 pg (27.0-31.0); MEAN CORPUSCULAR HGB CONC 33.6 g/dl (33.0-37.0); MEAN PLATELET VOLUME 9.5 fl (9.6-12.3); MONO # 0.9 10*3/uL (0.1-1.0); MONO % 8.1 % (3.0-9.0); NEUT # 7.4 10*3/uL (2.3-7.9); NEUT % 70.1 % (47.0-73.0); PLATELET COUNT AUTOMATED 270 10*3/uL (130-400); RED BLOOD COUNT 4.89 10*6/uL (4.50-5.90); WHITE BLOOD COUNT 10.6 10*3/uL (4.8-10.8)
[2019-12-15 07:27] LABS: ACT PARTIAL THROMBO TIME 29.8 SECONDS (20.0-32.1); INTERNATIONAL NORM RATIO 1.1 (2.0-3.5)
[2019-12-15 07:31] LABS: BUN 6 mg/dl (7-24); CHLORIDE 105 mmol/L (98-107); CREATININE 0.65 mg/dL (0.70-1.30); POTASSIUM 3.4 mmol/L (3.5-5.1); SODIUM 136 mmol/L (136-145)
--- NOTE | 2019-12-15 17:54 | NUR ---
PT HAD MEDS IN BAG AT BEDSIDE WELL CIGARETTES.PT ADAMANTLY REFUSED TO ALLOW ME TO SEND THEM TO PHARMACY. PT HAS 14 MG NICOTINE PATCH BOX,LARGE BOTTLE NEURONTIN,AND SMALL PILL BOTTLE CONTAINING HIS COUMADIN ALL ARE LOCKED IN [place].NOTIFIED DOCK GUARD JOSE. PT CONCERNED "HEY WILL BE LOST TOMORROW DURING TRANSFER TO [facility]".WILL NOTIFY NEXT SHIFT.
--- NOTE | 2019-12-15 20:00 | NUR ---
PT RESTING QUIETLY ON BED WITH EASY RESPIRATIONS. NO DISTRESS NOTED. PT REPORTS PAIN /. MEDICATED PER ORDERS. PT EDUCATED ON REMAINING NON WEIGHT BEARING WHEN USING URINAL OR BEDSIDE COMMODE. DRESSINGS DRY AND INTACT FROM PODIATRY. PT DENIES ANY ADDITIONAL NEEDS AT THIS TIME.
--- NOTE | 2019-12-15 21:00 | NUR ---
MEDICATION EFFECTIVE. PT RESTING QUIETLY. NO REPORTED COMPLAINTS.
[2019-12-16] VITALS: BP 166/86
[2019-12-16 05:55] LABS: BUN 5 mg/dl (7-24); CHLORIDE 104 mmol/L (98-107); CREATININE 0.64 mg/dL (0.70-1.30); POTASSIUM 3.6 mmol/L (3.5-5.1); SODIUM 137 mmol/L (136-145)
[2019-12-16 06:22] LABS: BASO # 0.1 10*3/uL (0.0-0.1); BASO % 0.4 % (0.0-1.0); EOS # 0.2 10*3/uL (0.0-0.4); EOS % 1.9 % (1.0-4.0); HEMATOCRIT 43.4 % (42.0-52.0); HEMOGLOBIN 14.7 g/dl (14.0-18.0); LYMPH # 2.3 10*3/uL (1.3-4.4); LYMPH % 20.2 % (27.0-41.0); MEAN CELL VOLUME 90.4 fl (80.0-94.0); MEAN CORPUSCULAR HGB 30.6 pg (27.0-31.0); MEAN CORPUSCULAR HGB CONC 33.9 g/dl (33.0-37.0); MEAN PLATELET VOLUME 9.8 fl (9.6-12.3); MONO # 1.1 10*3/uL (0.1-1.0); MONO % 9.8 % (3.0-9.0); NEUT # 7.7 10*3/uL (2.3-7.9); NEUT % 67.3 % (47.0-73.0); PLATELET COUNT AUTOMATED 280 10*3/uL (130-400); RED CELL DISTRI WIDTH 12.9 % (0-14.5); WHITE BLOOD COUNT 11.4 10*3/uL (4.8-10.8)
[2019-12-16 08:00] VITALS: BP 129/76
--- NOTE | 2019-12-16 08:30 | NUR ---
PT MEDICATED WITH PO NORCO AND MORPHINE AT THIS TIME FOR COMPLAINTS OF 10/10 PAIN IN BILATERAL FEET. WILL MONITOR.
[2019-12-16 08:37] LABS: INTERNATIONAL NORM RATIO 1.1 (2.0-3.5)
--- NOTE | 2019-12-16 09:00 | NUR ---
case management visits with patient, he will be transferred to [facility] today, case management will follow
--- NOTE | 2019-12-16 09:30 | NUR ---
PER PATIENT, PRN MEDICATION HAS BEEN EFFECTIVE.
--- NOTE | 2019-12-16 10:30 | NUR ---
REPORT GIVEN TO KENT THERAPIST AT THIS TIME.
--- NOTE | 2019-12-16 10:41 | NUR ---
PHYSICAL THERAPY Eval received for pt however pt is now being tranfered to [facility] for further care, will defer eval at this time due to above tranfer for further medical care. Aniyah Cee PT
--- NOTE | 2019-12-16 10:46 | NUR ---
OT referral received. Patient now being transferred to [facility]. Defer OT needs to transferring facility. Thank you. Yana Ro OTr/L
--- NOTE | 2019-12-16 11:45 | NUR ---
PATIENT PICKED UP BY [facility] TO BE TAKEN TO [place] FOR ARTERIOGRAM. HEPLOCK REMAINS PATENT & INTACT. UNABLE TO TAKE D/C PHOTOS OF WOUNDS DUE TO PODIATRY DRESSINGS LEFT IN PLACE TO BILAT LEGS. REPORT HAS BEEN GIVEN.
[2019-12-16 12:04] LABS: ACID FAST SPEC PROCESSING Tissue Grinding (.)
[2019-12-16 12:04] LABS: ACID FAST SPEC PROCESSING Tissue Grinding (.)
[2019-12-16 12:04] LABS: ACID FAST SPEC PROCESSING Tissue Grinding (.)
[2019-12-16 17:08] LABS: ACID FAST SPEC PROCESSING Direct Inoculation (.)
== END 2019-12-16 11:45 | disposition short-term general hospital (02) | DRG 853 ==
LOC: ED 15:10 → EDHOLD 19:23 → 4E 19:23
PROVIDERS: Family Medicine; Internal Medicine; Physician Assistant; Podiatrist; ADMIT Internal Medicine
PROC: 0QBM0ZX Excision of Left Tarsal, Open Approach, Diagnostic (ICD-10-PCS; principal; 2019-12-15)
PROC: 0QBN0ZX Excision of Right Metatarsal, Open Approach, Diagnostic (ICD-10-PCS; principal; 2019-12-15)
PROC: 0QBN0ZZ Excision of Right Metatarsal, Open Approach (ICD-10-PCS; principal; 2019-12-15)
PROC: 0QBM0ZZ Excision of Left Tarsal, Open Approach (ICD-10-PCS; principal; 2019-12-15)
PROC: 0SSM04Z Reposition Right Metatarsal-Phalangeal Joint with Internal Fixation Device, Open Approach (ICD-10-PCS; principal; 2019-12-15)
DX: A41.9 Sepsis, unspecified organism (principal); E43 Unspecified severe protein-calorie malnutrition; L03.115 Cellulitis of right lower limb; E87.1 Hypo-osmolality and hyponatremia; E87.2 Acidosis; F10.239 Alcohol dependence with withdrawal, unspecified; L03.116 Cellulitis of left lower limb; M86.8X7 Other osteomyelitis, ankle and foot; R65.20 Severe sepsis without septic shock; E87.8 Other disorders of electrolyte and fluid balance, not elsewhere classified; E11.65 Type 2 diabetes mellitus with hyperglycemia; E11.42 Type 2 diabetes mellitus with diabetic polyneuropathy; I10 Essential (primary) hypertension; F17.210 Nicotine dependence, cigarettes, uncomplicated; E11.69 Type 2 diabetes mellitus with other specified complication; B95.4 Other streptococcus as the cause of diseases classified elsewhere; Y90.9 Presence of alcohol in blood, level not specified; R79.1 Abnormal coagulation profile; L85.3 Xerosis cutis; E11.51 Type 2 diabetes mellitus with diabetic peripheral angiopathy without gangrene; S93.129A Dislocation of metatarsophalangeal joint of unspecified toe(s), initial encounter; S91.301A Unspecified open wound, right foot, initial encounter; S90.922A Unspecified superficial injury of left foot, initial encounter; X58.XXXA Exposure to other specified factors, initial encounter; Z71.6 Tobacco abuse counseling; Z95.2 Presence of prosthetic heart valve; Z79.4 Long term (current) use of insulin; I25.2 Old myocardial infarction; Z95.1 Presence of aortocoronary bypass graft; Z83.3 Family history of diabetes mellitus; Z82.49 Family history of ischemic heart disease and other diseases of the circulatory system; Z79.899 Other long term (current) drug therapy; Z79.82 Long term (current) use of aspirin; Z79.01 Long term (current) use of anticoagulants; Y93.89 Activity, other specified; Y92.89 Other specified places as the place of occurrence of the external cause; Y99.8 Other external cause status; Z68.32 Body mass index [BMI] 32.0-32.9, adult

== ENCOUNTER 2020-01-12 14:27 | Inpatient (IN) | payer MEDICARE, MEDICAID ==
[~2020-01-12] VITALS: Ht 185.4 cm; Wt 111.1 kg
[~2020-01-12 14:27] MED LIST changes: +ATORVASTATIN CA40 M1 PO; +GABAPENTIN800 MG PO
[2020-01-12 14:34] VITALS: BP 133/70
[2020-01-12 15:53] LABS: BASO # 0.1 10*3/uL (0.0-0.1); BASO % 0.6 % (0.0-1.0); EOS # 0.4 10*3/uL (0.0-0.4); HEMATOCRIT 43.1 % (42.0-52.0); HEMOGLOBIN 14.5 g/dl (14.0-18.0); LYMPH # 1.8 10*3/uL (1.3-4.4); MEAN CELL VOLUME 88.5 fl (80.0-94.0); MEAN CORPUSCULAR HGB 29.8 pg (27.0-31.0); MEAN CORPUSCULAR HGB CONC 33.6 g/dl (33.0-37.0); MEAN PLATELET VOLUME 9.6 fl (9.6-12.3); MONO # 1.3 10*3/uL (0.1-1.0); MONO % 8.9 % (3.0-9.0); NEUT # 10.5 10*3/uL (2.3-7.9); NEUT % 74.1 % (47.0-73.0); PLATELET COUNT AUTOMATED 338 10*3/uL (130-400); RED BLOOD COUNT 4.87 10*6/uL (4.50-5.90); RED CELL DISTRI WIDTH 13.1 % (0-14.5); WHITE BLOOD COUNT 14.1 10*3/uL (4.8-10.8)
[2020-01-12 16:00] VITALS: BP 146/76
[2020-01-12 16:09] LABS: ALKALINE PHOSPHATASE 95 U/L (45-117); BUN 6 mg/dl (7-24); CHLORIDE 98 mmol/L (98-107); CREATININE 1.13 mg/dL (0.70-1.30); LIPASE 231 U/L (73-393); POTASSIUM 3.8 mmol/L (3.5-5.1); SGOT/AST 17 IU/L (3-35); SGPT/ALT 20 U/L (12-78); SODIUM 131 mmol/L (136-145); TOTAL PROTEIN 8.7 gm/dL (6.4-8.2)
[2020-01-12 16:10] LABS: ACT PARTIAL THROMBO TIME 45.9 SECONDS (20.0-32.1); INTERNATIONAL NORM RATIO 3.3 (2.0-3.5)
[2020-01-12 16:12] LABS: TROPONIN I < 0.015 ng/ml (<0.045)
--- NOTE | 2020-01-12 16:23 | NUR ---
THE WOUND DRESSING WAS REMOVED BY THE RESIDENT LAST CLEANER. HE DID CULTURE THE WOUND. THIS NURSE TOOK PHOTOS. THE RESIDENT REDRESSED THE WOUND
--- NOTE | 2020-01-12 17:45 | NUR ---
A 59, admitted to , under the services of ARACELIS Walker DO with a diagnosis of CELLULITIS,HYPONATREMIA,SEVERE SEPSIS. Chief complaint is RIGHT FOOT PAIN. Patient arrived via bed from ER. Monitor applied. Initial assessment completed. Vital signs taken and recorded. ARACELIS WALKER DO notified of admission to the unit. Orders received. See assessment for past medical history, medications and allergies. Patient and/or family oriented to unit. [facility] visitation policy reviewed. Clothing/patient valuable form completed. SUSAN AAGRWAL
[2020-01-12 20:00] VITALS: BP 127/59
[2020-01-13] VITALS: BP 134/71
[2020-01-13 01:03] LABS: BILIRUBIN NEGATIVE (NEGATIVE); BLOOD 1+ (NEGATIVE); CLARITY CLEAR (CLEAR); COLOR YELLOW (YELLOW); GLUCOSE 2+ (NEGATIVE); KETONE NEGATIVE (NEGATIVE); LEUKO ESTERASE NEGATIVE (NEGATIVE); NITRITE NEGATIVE (NEGATIVE); UROBILINOGEN 0.2 E.U./dl (0.2-1.0)
[2020-01-13 01:08] LABS: WBC 0-2 wbc/hpf (0-5)
--- NOTE | 2020-01-13 04:44 | NUR ---
DEBORA STEPHENSON [id number] Please refer to the physician's history and physical for past medical history, comorbid conditions, and allergies. Diagnosis: CELLULITIS HYPONATREMIA SEVERE SEPSIS Dimitri Score: 20,LOW OR NO RISK WOUND DESCRIPTIONS: Dressing intact to right foot with strikethrough drainage noted to plantar apsect of dressing. Patient states he has been following with Dr. Lezama since December when they did the original surgery and he states that he is possibly going to follow up in [place] when he leaves because his family wants him to because they keep cutting at his foot and he doesn't want to lose his foot. Surface the patient is resting on: Isoflex SKIN PREVENTION RECOMMENDATION: 1. Pressure redistribution support surface as appropriate 2. Elevate heels 3. Remove boots/TEDS every shift and reapply 4. Head of bed 30 degrees as tolerated 5. Assess nutrition and hydration 6. Manage moisture 7. Avoid the use of containment devices while in bed 8. Use absorptive products on surfaces limit layers of linens on bed 9. Turn and reposition every 1-2 hours in bed and every 1 hour in chair as tolerated 10. Weight shifts every 15 minutes while up in chair 11. Offloading with pillows or device to keep heels elevated off bed 12. Monitor skin at least every shift 13. Inspect under medical devices twice a day WOUND TREATMENT RECOMMENDATIONS: Consult vascular due to arterial studies on 01/12/20. Podiatry and ID are already on consult at this time continue to follow orders per podiatry. Patient is schedule for surgery at 7:30am with podaitry. Heel raiser pro boots to bilateral feet while in bed. Patient states he will either follow with podiatry upon discharge or [place] for another opinion.
--- NOTE | 2020-01-13 05:55 | NUR ---
CONSULT COMPLETE WITH DR. REYNOLDS, NO NEW ORDERS AT THIS TIME.
[2020-01-13 06:16] LABS: BASO # 0.1 10*3/uL (0.0-0.1); BASO % 0.9 % (0.0-1.0); EOS # 0.7 10*3/uL (0.0-0.4); EOS % 5.1 % (1.0-4.0); HEMATOCRIT 41.1 % (42.0-52.0); HEMOGLOBIN 13.6 g/dl (14.0-18.0); LYMPH # 2.8 10*3/uL (1.3-4.4); LYMPH % 21.7 % (27.0-41.0); MEAN CELL VOLUME 89.7 fl (80.0-94.0); MEAN CORPUSCULAR HGB 29.7 pg (27.0-31.0); MEAN CORPUSCULAR HGB CONC 33.1 g/dl (33.0-37.0); MEAN PLATELET VOLUME 9.6 fl (9.6-12.3); MONO # 1.1 10*3/uL (0.1-1.0); MONO % 8.6 % (3.0-9.0); NEUT # 8.2 10*3/uL (2.3-7.9); NEUT % 63.3 % (47.0-73.0); PLATELET COUNT AUTOMATED 327 10*3/uL (130-400); RED BLOOD COUNT 4.58 10*6/uL (4.50-5.90); RED CELL DISTRI WIDTH 13.2 % (0-14.5)
[2020-01-13 06:25] LABS: ACT PARTIAL THROMBO TIME 34.4 SECONDS (20.0-32.1); INTERNATIONAL NORM RATIO 1.6 (2.0-3.5)
[2020-01-13 06:49] LABS: CHLORIDE 103 mmol/L (98-107); POTASSIUM 3.3 mmol/L (3.5-5.1); SODIUM 135 mmol/L (136-145)
[2020-01-13 06:54] LABS: BUN 8 mg/dl (7-24); CREATININE 0.99 mg/dL (0.70-1.30); PHOSPHOROUS 2.9 mg/dL (2.5-4.9)
--- NOTE | 2020-01-13 07:42 | NUR ---
PHYSICAL THERAPY Screen and PT eval received will follow thank you Aniyah Cee PT
[2020-01-13 08:12] VITALS: BP 138/70
--- NOTE | 2020-01-13 08:34 | NUR ---
Patient NPO and waiting to go for right foot debridement. He was frustrated as he was suppossed to be in surgery at 7:30 and it was now 8:30. Patient verbalized that if he was not taken soon, he would go to [facility] to get his foot attended too.Nurse informed. OTR will attempt at a later date. Yana Ro OTR/makenzie
--- NOTE | 2020-01-13 08:37 | NUR ---
DILAUDID GIVEN TO PT FOR C/O RIGHT FOOT PAIN; RATES PAIN 10/10. WILL MONITOR FOR EFFECTIVENESS. PT ASKS FOR NURSE TO CALL SURGERY REGARDING I&D ON RIGHT FOOT. WILL CALL AND UPDATE PT.
--- NOTE | 2020-01-13 08:37 | NUR ---
PHYSICAL THERAPY Attempted to see pt for evaluation however pt going for surgery this AM will follow after procedure as medically appropriate. Pt frustrated as he was to go to surgery "an hour ago" spoke with nursing and she will be in to speak w pt Aniyah Cee PT
--- NOTE | 2020-01-13 08:56 | NUR ---
DR HEART STATES THAT PT I&D WILL BE LATER ON THIS AFTERNOON. PHYSICIAN STATES THAT HE WILL BE UP TO SPEAK TO PT REGARDING THE MATTER.
--- NOTE | 2020-01-13 09:37 | NUR ---
PT STATES THAT DILAUDID IS EFFECTIVE.
--- NOTE | 2020-01-13 09:50 | NUR ---
PT STATES THAT HE WOULD LIKE TO LEAVE AMA AT THIS TIME. APPROPRIATE PAPERWORK SIGNED, DR SURESH NOTIFIED. NURSING PLANT OPERATIONS MANAGER NOTIFIED. PT WAITING ON BELONGINGS FROM LOCK BOX IN PLANT OPERATIONS MANAGER OFFICE.
--- NOTE | 2020-01-13 10:15 | NUR ---
LOVENOX GIVEN PER ORDERED. PT PERSONAL BELONGINGS FROM LOCK BOX GIVEN.
--- NOTE | 2020-01-13 10:18 | NUR ---
PT LEAVES FLOOR AT THIS TIME.
--- NOTE | 2020-01-13 10:22 | NUR ---
PHYSICAL THERAPY Per nursing pt has signed out of the hosptial KATHY Cee PT
--- NOTE | 2020-01-13 10:24 | NUR ---
Patient left hospital AMA. Yana Ro OTR/L
--- NOTE | 2020-01-13 11:27 | NUR ---
patient signed out of the hospital before case management could visit with hime
== END 2020-01-13 10:24 | disposition left against medical advice (07) | DRG 602 ==
LOC: ED 14:27 → 4E 16:57 → EDHOLD 16:57 → 4E 17:19
PROVIDERS: Internal Medicine; Nurse Practitioner Family; ADMIT Family Medicine
DX: L03.115 Cellulitis of right lower limb (principal); A41.9 Sepsis, unspecified organism; R65.20 Severe sepsis without septic shock; M86.271 Subacute osteomyelitis, right ankle and foot; E87.1 Hypo-osmolality and hyponatremia; E87.2 Acidosis; E44.1 Mild protein-calorie malnutrition; L97.519 Non-pressure chronic ulcer of other part of right foot with unspecified severity; F17.210 Nicotine dependence, cigarettes, uncomplicated; E11.621 Type 2 diabetes mellitus with foot ulcer; E11.65 Type 2 diabetes mellitus with hyperglycemia; I10 Essential (primary) hypertension; F10.10 Alcohol abuse, uncomplicated; E55.9 Vitamin D deficiency, unspecified; E78.5 Hyperlipidemia, unspecified; E11.49 Type 2 diabetes mellitus with other diabetic neurological complication; E11.51 Type 2 diabetes mellitus with diabetic peripheral angiopathy without gangrene; Z53.29 Procedure and treatment not carried out because of patient's decision for other reasons; S90.921A Unspecified superficial injury of right foot, initial encounter; X58.XXXA Exposure to other specified factors, initial encounter; Y93.89 Activity, other specified; Y92.89 Other specified places as the place of occurrence of the external cause; Y99.8 Other external cause status; I25.2 Old myocardial infarction; Z95.2 Presence of prosthetic heart valve; S82.832D Other fracture of upper and lower end of left fibula, subsequent encounter for closed fracture with routine healing; Z95.1 Presence of aortocoronary bypass graft; Z83.3 Family history of diabetes mellitus; Z82.49 Family history of ischemic heart disease and other diseases of the circulatory system; Z79.01 Long term (current) use of anticoagulants; Z79.82 Long term (current) use of aspirin; Z79.899 Other long term (current) drug therapy; Z68.32 Body mass index [BMI] 32.0-32.9, adult; Z79.4 Long term (current) use of insulin; E11.69 Type 2 diabetes mellitus with other specified complication

== ENCOUNTER → 2021-01-26 | Outpatient (CLI) | payer MEDICARE, MEDICAID | LOC: RESCLI 00:28 | PROVIDERS: ATTEND Internal Medicine | DX: E11.51 Type 2 diabetes mellitus with diabetic peripheral angiopathy without gangrene (principal); E11.42 Type 2 diabetes mellitus with diabetic polyneuropathy; L97.521 Non-pressure chronic ulcer of other part of left foot limited to breakdown of skin; F17.210 Nicotine dependence, cigarettes, uncomplicated; F10.10 Alcohol abuse, uncomplicated; Z71.6 Tobacco abuse counseling; Z95.2 Presence of prosthetic heart valve; Z79.899 Other long term (current) drug therapy ==

== ENCOUNTER → 2021-04-20 | Outpatient (CLI) | payer OTHER ==
[2021-04-20 08:57] LABS: BUN 7 mg/dl (7-24); CHLORIDE 103 mmol/L (98-107); CHOLESTEROL 245 mg/dL (<200); LDL CHOLESTEROL 175 mg/dL (9-159); SODIUM 136 mmol/L (136-145); TRIGLYCERIDES 196 mg/dl (<150)
== END | disposition home or self-care (01) ==
LOC: LAB 08:06
PROVIDERS: ATTEND Family Medicine
DX: E11.9 Type 2 diabetes mellitus without complications (principal); E55.9 Vitamin D deficiency, unspecified

== ENCOUNTER → 2022-03-19 | Outpatient (CLI) | payer OTHER | END | disposition home or self-care (01) | LOC: CARD 12:18 | PROVIDERS: ATTEND Internal Medicine Cardiovascular Disease | DX: I51.7 Cardiomegaly (principal) ==

== ENCOUNTER 2023-08-19 09:03 | Inpatient (IN) | payer OTHER ==
[2023-08-19] VITALS (13 sets, daily range): BP systolic 95–167; BP diastolic 51–135
[~2023-08-19] VITALS: Ht 185.4 cm; Wt 101.6 kg
[2023-08-19 09:36] LABS: BASO % 0.2 % (0.0-1.0); EOS # 0.2 10*3/uL (0.0-0.4); EOS % 0.9 % (1.0-4.0); HEMATOCRIT 46.4 % (42.0-52.0); LYMPH # 0.6 10*3/uL (1.3-4.4); LYMPH % 3.2 % (27.0-41.0); MEAN CELL VOLUME 91.9 fl (80.0-94.0); MEAN CORPUSCULAR HGB 32.3 pg (27.0-31.0); MEAN CORPUSCULAR HGB CONC 35.1 g/dl (33.0-37.0); MONO % 5.8 % (3.0-9.0); NEUT # 15.9 10*3/uL (2.3-7.9); NEUT % 88.7 % (47.0-73.0); PLATELET COUNT AUTOMATED 91 10*3/uL (130-400); RED BLOOD COUNT 5.05 10*6/uL (4.50-5.90)
[2023-08-19 09:47] LABS: ACT PARTIAL THROMBO TIME 39.3 SECONDS (20.0-32.1); INTERNATIONAL NORM RATIO 3.9 (2.0-3.5)
[2023-08-19 09:58] LABS: POTASSIUM 3.9 mmol/L (3.4-5.1); TOTAL PROTEIN 7.9 gm/dL (6.0-8.0)
[2023-08-19 18:44] LABS: BILIRUBIN 1+ (Negative); BLOOD 3+ (Negative); CLARITY Turbid (Clear); COLOR Orange (Yellow); GLUCOSE Negative (Negative); KETONE Trace (Negative); LEUKO ESTERASE Trace (Negative); NITRITE Positive (Negative)
[2023-08-19 18:56] LABS: BACTERIA 2+
[2023-08-19 20:38] LABS: URINE CHLORIDE, RANDOM < 20 mmol/L
== END 2023-08-19 22:11 | disposition short-term general hospital (02) | DRG 871 ==
LOC: ED 09:03 → EDHOLD 11:53
PROVIDERS: Emergency Medicine; Internal Medicine Nephrology; ADMIT Internal Medicine; ATTEND Internal Medicine
DX: A41.9 Sepsis, unspecified organism (principal); G93.41 Metabolic encephalopathy; I21.4 Non-ST elevation (NSTEMI) myocardial infarction; J18.9 Pneumonia, unspecified organism; I50.33 Acute on chronic diastolic (congestive) heart failure; N17.0 Acute kidney failure with tubular necrosis; E87.20 Acidosis, unspecified; N12 Tubulo-interstitial nephritis, not specified as acute or chronic; M87.051 Idiopathic aseptic necrosis of right femur; M87.052 Idiopathic aseptic necrosis of left femur; E87.1 Hypo-osmolality and hyponatremia; E44.0 Moderate protein-calorie malnutrition; L03.115 Cellulitis of right lower limb; R65.20 Severe sepsis without septic shock; E78.5 Hyperlipidemia, unspecified; E11.40 Type 2 diabetes mellitus with diabetic neuropathy, unspecified; K52.9 Noninfective gastroenteritis and colitis, unspecified; E80.6 Other disorders of bilirubin metabolism; K76.0 Fatty (change of) liver, not elsewhere classified; F10.10 Alcohol abuse, uncomplicated; D69.6 Thrombocytopenia, unspecified; E87.8 Other disorders of electrolyte and fluid balance, not elsewhere classified; E11.65 Type 2 diabetes mellitus with hyperglycemia; K80.80 Other cholelithiasis without obstruction; I45.4 Nonspecific intraventricular block; E55.9 Vitamin D deficiency, unspecified; F17.210 Nicotine dependence, cigarettes, uncomplicated; I11.0 Hypertensive heart disease with heart failure; K44.9 Diaphragmatic hernia without obstruction or gangrene; Z83.3 Family history of diabetes mellitus; Z82.49 Family history of ischemic heart disease and other diseases of the circulatory system; Z95.2 Presence of prosthetic heart valve; Z95.1 Presence of aortocoronary bypass graft; Z98.62 Peripheral vascular angioplasty status; Z68.29 Body mass index [BMI] 29.0-29.9, adult